=== PATIENT | male | born 1960 | race Native Hawaiian/Other Pacific Islander ===

== ENCOUNTER → 2016-03-04 | Outpatient (CLI) | payer BC ==
[2016-03-04 17:09] LABS: PROTHROMBIN TIME 26.3 SEC (11.4-15.4)
== END ==
LOC: OD 16:28
PROVIDERS: ATTEND Specialist
DX: I48.0 Paroxysmal atrial fibrillation (principal); Z79.01 Long term (current) use of anticoagulants
CPT/HCPCS: 36415; 85610

== ENCOUNTER → 2016-03-21 | Outpatient (CLI) | payer BC ==
[2016-03-21 17:17] LABS: PROTHROMBIN TIME 17.5 SEC (11.4-15.4)
== END ==
LOC: OD 15:31
PROVIDERS: ATTEND Urology
DX: E29.1 Testicular hypofunction (principal); N52.8 Other male erectile dysfunction; N52.9 Male erectile dysfunction, unspecified; I48.0 Paroxysmal atrial fibrillation; Z79.01 Long term (current) use of anticoagulants
CPT/HCPCS: 36415; 84403; 85610

== ENCOUNTER → 2016-03-28 | Outpatient (CLI) | payer BC ==
[2016-03-28 19:06] LABS: PROTHROMBIN TIME 39.9 SEC (11.4-15.4)
== END ==
LOC: OD 17:15
PROVIDERS: ATTEND Internal Medicine Cardiovascular Disease
DX: I48.0 Paroxysmal atrial fibrillation (principal); Z79.01 Long term (current) use of anticoagulants
CPT/HCPCS: 36415; 80162; 85610

== ENCOUNTER → 2016-04-15 | Outpatient (CLI) | payer BC ==
[2016-04-15 13:15] LABS: PROTHROMBIN TIME 28.3 SEC (11.4-15.4)
== END ==
LOC: OD 12:08
PROVIDERS: ATTEND Specialist
DX: I48.0 Paroxysmal atrial fibrillation (principal); Z79.01 Long term (current) use of anticoagulants
CPT/HCPCS: 36415; 85610

== ENCOUNTER 2016-05-10 14:05 | Emergency (ER) | payer BC ==
[2016-05-10] MEDS ORDERED: DIPH/PERTUSS(ACELL)/TETANUS VAC/PF 0.5 ML SYR (>=10YO) IM ONE (14:18)
--- NOTE | 2016-05-10 14:21 | ER Document Report ---
ED Medical Screen (RME) - General Stated Complaint: FINGER LACERATION Mode of Arrival: Ambulatory Information source: Patient Notes: pt presents to the ED with crush injury to right 5th finger. Pt is on coumadin. Nail intact. I have greeted and performed a rapid initial assessment of this patient. A comprehensive ED assessment and evaluation of the patient, analysis of test results and completion of the medical decision making process will be conducted by additional ED providers. TRAVEL OUTSIDE OF THE [place] IN LAST 30 DAYS: No - Related Data Allergies/Adverse Reactions: atorvastatin calcium [From Lipitor] Allergy (Verified 06/09/15 07:15) bupropion HCl [From Wellbutrin] Allergy (Verified 06/09/15 07:15) Past Medical History - Past Medical History Cardiac Medical History: Reports: Hx Atrial Fibrillation, Hx Hypercholesterolemia, Hx Hypertension Denies: Hx Coronary Artery Disease, Hx Heart Attack Pulmonary Medical History: Denies: Hx Asthma, Hx Bronchitis, Hx COPD, Hx Pneumonia Neurological Medical History: Denies: Hx Cerebrovascular Accident, Hx Seizures GI Medical History: Reports: Hx Gastroesophageal Reflux Disease Musculoskeltal Medical History: Denies Hx Arthritis Psychiatric Medical History: Denies: Hx Depression Past Surgical History: Reports: Hx Appendectomy, Hx Orthopedic Surgery - right elbow, WRIST, KNEE, SHOULDER. Denies: Hx Pacemaker - Immunizations Hx Diphtheria, Pertussis, Tetanus Vaccination: Yes Physical Exam - Vital signs Vitals: Temp Pulse Resp BP Pulse Ox 97.8 F 79 19 142/77 H 97 05/10/16 14:13 05/10/16 14:13 05/10/16 14:13 05/10/16 14:13 05/10/16 14:13 Course - Vital Signs Vital signs: Temp Pulse Resp BP Pulse Ox 97.8 F 79 19 142/77 H 97 05/10/16 14:13 05/10/16 14:13 05/10/16 14:13 05/10/16 14:13 05/10/16 14:13
[2016-05-10 15:29] LABS: PROTHROMBIN TIME 39.9 SEC (11.4-15.4)
--- NOTE | 2016-05-10 16:18 | ER Document Report ---
ED Hand/Wrist Injury - General Mode of Arrival: Ambulatory Information source: Patient TRAVEL OUTSIDE OF THE [place] IN LAST 30 DAYS: No - HPI Patient complains to provider of: Laceration to the right 5th digit Injury to: Ring finger Onset: Just prior to arrival Where: Outdoors Context: Other - see above - General Chief Complaint: Finger Injury Stated Complaint: FINGER LACERATION Notes: 55 year old male on Coumadin presents to the ED complaining of a laceration to the right 5th digit secondary to losing his balance, falling back, and having the 2'x6' he was carrying over his head fall onto his right 5th digit just prior to arrival. Patient states that skin from the tip of his 5th right digit was standing upright and it appears to have torn from under his nail bed. ( ROBERT KATZ) - Related Data Allergies/Adverse Reactions: atorvastatin calcium [From Lipitor] Allergy (Verified 05/10/16 14:21) bupropion HCl [From Wellbutrin] Allergy (Verified 05/10/16 14:21) Past Medical History - General Information source: Patient - Social History Smoking Status: Current Every Day Smoker Chew tobacco use (# tins/day): No Frequency of alcohol use: None Drug Abuse: None Family History: CVA, Hypertension Patient has suicidal ideation: No Patient has homicidal ideation: No - Past Medical History Cardiac Medical History: Reports: Hx Atrial Fibrillation, Hx Hypercholesterolemia, Hx Hypertension Renal/ Medical History: Denies: Hx Peritoneal Dialysis GI Medical History: Reports: Hx Gastroesophageal Reflux Disease Psychiatric Medical History: Denies: Hx Depression Past Surgical History: Reports: Hx Appendectomy, Hx Orthopedic Surgery - right elbow, WRIST, KNEE, SHOULDER - Immunizations Hx Diphtheria, Pertussis, Tetanus Vaccination: Yes Review of Systems - Review of Systems Constitutional: No symptoms reported EENT: No symptoms reported Cardiovascular: No symptoms reported Respiratory: No symptoms reported Gastrointestinal: No symptoms reported Genitourinary: No symptoms reported Male Genitourinary: No symptoms reported Musculoskeletal: No symptoms reported Skin: See HPI, Other - laceration to the right 5th digit Hematologic/Lymphatic: No symptoms reported Neurological/Psychological: No symptoms reported -: Yes All other systems reviewed and negative Physical Exam - General General appearance: Alert In distress: None - HEENT Head: Normocephalic, Atraumatic Eyes: Normal Extraocular movements intact: Yes Pupils: PERRL - Respiratory Respiratory status: No respiratory distress - Cardiovascular Rhythm: Regular - Abdominal Inspection: Normal - Back Back: Normal - Extremities General upper extremity: Normal ROM. No: Normal inspection - see hand exam below General lower extremity: Normal inspection, Normal ROM Hand: Other - 1 mm laceration to the radial aspect of the right 5th digit. 3 mm laceration to the ulnar aspect of the right 5th digit. Nail appears to be intact.. No: Normal - Neurological Neuro grossly intact: Yes - Psychological Associated symptoms: Normal affect, Normal mood - Skin Skin Temperature: Warm Skin Moisture: Dry Skin Color: Normal Skin irregularity: other - see extremity exam above - Vital signs Vitals: Temp Pulse Resp BP Pulse Ox 97.8 F 79 19 142/77 H 97 05/10/16 14:13 05/10/16 14:13 05/10/16 14:13 05/10/16 14:13 05/10/16 14:13 Course - Re-evaluation Re-evalutation: 05/10/16 17:40 The finger wound was cleaned and dressed using nonadherent dressing, then wrapped tightly with Koban. This seemed to control the bleeding completely. ( JOAQUIN PATEL) - Vital Signs Vital signs: Temp Pulse Resp BP Pulse Ox 97.8 F 79 19 142/77 H 97 05/10/16 14:13 05/10/16 14:13 05/10/16 14:13 05/10/16 14:13 05/10/16 14:13 - Laboratory Laboratory results interpreted by me: 05/10/16 15:02 PT 39.9 H Discharge - Discharge Clinical Impression: Excessive anticoagulation Crushing injury of finger of right hand Qualifiers: Encounter type: initial encounter Qualified Code(s): S67.21XA - Crushing injury of right hand, initial encounter Condition: Stable Disposition: HOME, SELF-CARE Additional Instructions: Take the medications as prescribed. Elevate your hand all the time. Leave the dressing intact until late Thursday, then remove the dressing and reapply a clean dressing. Omit your Coumadin dose for tonight and tomorrow night. Keep the finger dressing clean and dry. Follow-up with [facility] for surgery to evaluate the wound healing. RETURN TO THE EMERGENCY ROOM IF ANY NEW OR WORSENING SYMPTOMS. Prescriptions: Cephalexin Monohydrate [Keflex 500 mg Capsule] 500 mg PO QID #20 capsule Oxycodone HCl/Acetaminophen [Percocet 5-325 mg Tablet] 1 tab PO ASDIR PRN #15 tablet PRN Reason: Referrals: [facility] ([facility]) [Provider Group] Scribe Attestation: 05/10/16 17:46 I personally performed the services described in the documentation, reviewed and edited the documentation which was dictated to the scribe in my presence, and it accurately records my words and actions. (JOAQUIN PATEL) Scribe Documentation - Scribe Written by Jess:: Jess Deras, 05/10/2016 1636 acting as scribe for :: Jc
[2016-05-10] MEDS ORDERED: CEPHALEXIN 500 MG CAPSULE PO ONE (16:24)
[2016-05-10] MEDS ORDERED: HYDROCODONE/ACETAMINOPHEN 5-325 MG TABLET PO ONE (16:24)
[2016-05-10 17:56] VITALS: BP 149/89
== END 2016-05-10 17:55 | disposition home or self-care (01) ==
LOC: ER 14:05
DX: S67.21XA Crushing injury of right hand, initial encounter (principal); X58.XXXA Exposure to other specified factors, initial encounter; F17.200 Nicotine dependence, unspecified, uncomplicated; E78.00 Pure hypercholesterolemia, unspecified; I48.91 Unspecified atrial fibrillation; K21.9 Gastro-esophageal reflux disease without esophagitis; I10 Essential (primary) hypertension; Z79.02 Long term (current) use of antithrombotics/antiplatelets; Z23 Encounter for immunization
CPT/HCPCS: 36415; 85610; 90471; 90715; 99283

== ENCOUNTER → 2016-05-22 | Outpatient (CLI) | payer BC ==
[2016-05-22 09:58] LABS: PROTHROMBIN TIME 23.8 SEC (11.4-15.4)
== END ==
LOC: OD 09:13
PROVIDERS: ATTEND Specialist
DX: I48.0 Paroxysmal atrial fibrillation (principal); Z79.01 Long term (current) use of anticoagulants
CPT/HCPCS: 36415; 85610

== ENCOUNTER 2016-06-07 12:37 | Emergency (ER) | payer BC ==
[2016-06-07] MEDS ORDERED: LIDOCAINE 1% INJ-PF (10 MG/ML) 30 ML SDV INJ ONE (13:51)
--- NOTE | 2016-06-07 13:54 | ER Document Report ---
HPI - HPI Patient complains to provider of: cut left index finger Onset: This morning Quality of pain: Burning Pain Level: 2 Context: 55-year-old male stabbed his distal left index finger with a pocket knife when trying to punch a hole in his dog's collar this morning at [place]. He takes warfarin. His last INR was last thu, decreased to 7.5 alternating with 10mg daily (dr. callejas). tetanus current. He came into the ER because he couldn't get it to stop bleeding. Associated Symptoms: None Exacerbated by: Denies Relieved by: Denies Similar symptoms previously: Yes Recently seen / treated by doctor: Yes - last month - ROS ROS below otherwise negative: Yes Systems Reviewed and Negative: Yes All other systems reviewed and negative - DERM Skin Color: Normal Past Medical History - General Information source: Patient - Social History Smoking Status: Unknown if Ever Smoked Drug Abuse: None Lives with: Family Family History: CVA, Hypertension Patient has suicidal ideation: No Patient has homicidal ideation: No - Past Medical History Cardiac Medical History: Reports: Hx Atrial Fibrillation, Hx Hypercholesterolemia, Hx Hypertension Renal/ Medical History: Denies: Hx Peritoneal Dialysis GI Medical History: Reports: Hx Gastroesophageal Reflux Disease Musculoskeltal Medical History: Denies Hx Arthritis Past Surgical History: Reports: Hx Appendectomy, Hx Orthopedic Surgery - right elbow, WRIST, KNEE, SHOULDER - Immunizations Hx Diphtheria, Pertussis, Tetanus Vaccination: Yes Vertical Provider Document - CONSTITUTIONAL Agree With Documented VS: Yes Exam Limitations: No Limitations - INFECTION CONTROL TRAVEL OUTSIDE OF THE [place] IN LAST 30 DAYS: No - HEENT HEENT: Normocephalic - NECK Neck: Supple - RESPIRATORY O2 Sat by Pulse Oximetry: 98 - NEURO Level of Consciousness: Awake, Alert, Appropriate - DERM Integumentary: Warm, Dry, Laceration Course - Re-evaluation Re-evalutation: 06/07/16 15:[address] Callejas, he wants the patient to manage his Coumadin. Dr. Coffman wants him to skip his dose tonight then resume the alternating 7.5 and 10 mg starting tomorrow. - Vital Signs Vital signs: Temp Pulse Resp BP Pulse Ox 98.1 F 78 18 148/76 H 98 06/07/16 12:43 06/07/16 12:43 06/07/16 12:43 06/07/16 12:43 06/07/16 12:43 - Laboratory Result Diagrams: 06/07/16 14:35 Procedures - Laceration/Wound Repair Left Finger Time completed: 14:56 Wound length (cm): 1 - flap cut Wound's Depth, Shape: Flap Laceration pre-procedure: Sterile drapes applied, Other - surgiscrib Volume Anesthetic (mLs): 6 - digital block Wound explored: Clean Irrigated w/ Saline (mLs): 60 Wound Repaired With: Sutures Suture Size/Type: 4:0, Prolene Number of Sutures: 3 Layer Closure?: No Post-procedure NV exam normal: No - still had finger anesthetized Complications: No Notes: 06/07/16 15:18 tourniquet used to evaluate base of flap wound, only subq tissue, no bone exposed. FROM Discharge - Discharge Clinical Impression: finger cut repair, Elevated INR Condition: Good Disposition: HOME, SELF-CARE Additional Instructions: do not take your coumadin tonight restart your coumadin per dr. callejas orders, i spoke with him and he wants you to resume the every other day of 7.5 and 10mg keep the dressing in place for 2 days, soak off, then keep clean and dry return to er any concerns sutures out in 9 days recheck INR in 1 week Please complete the patient satisfaction survey if you get one, and return it.. If you do not receive a survey, then you can go to the [facility] website, [email or web address] and place your comments about your very good care. Thank you very much. It was a pleasure being your medical provider today. Forms: Follow-Up Laboratory Testing Referrals: ROGER COFFMAN MD [ACTIVE STAFF] - Follow up as needed
[2016-06-07 15:07] LABS: ABSOLUTE BASOPHILS # (AUTO) 0.1 10^3/uL (0.0-0.2); ABSOLUTE EOSINOPHILS # (AUTO) 0.2 10^3/uL (0.0-0.6); ABSOLUTE LYMPHOCYTES (AUTO) 2.5 10^3/uL (0.5-4.7); ABSOLUTE MONOCYTES (AUTO) 0.7 10^3/uL (0.1-1.4); ABSOLUTE NEUT (AUTO) 4.8 10^3/uL (1.7-8.2); BASOPHILS % (AUTO) 1.1 % (0-2); EOSINOPHILS % (AUTO) 2.1 % (0-6); HEMATOCRIT 41.2 % (37.9-51.0); HEMOGLOBIN 13.1 g/dL (13.5-17.0); HGB HCT DIFFERENCE -1.9; LYMPHOCYTES % (AUTO) 30.8 % (13-45); MEAN CORPUSCULAR HEMOGLOBIN 20.5 pg (27.0-33.4); MEAN CORPUSCULAR HGB CONC 31.9 g/dL (32.0-36.0); MONOCYTES % (AUTO) 8.1 % (3-13); RED BLOOD COUNT 6.43 10^6/uL (4.35-5.55); RED CELL DISTRIBUTION WIDTH 15.9 % (11.5-14.0); SEGMENTED NEUTROPHILS % (AUTO) 57.9 % (42-78); WHITE BLOOD COUNT 8.3 10^3/uL (4.0-10.5)
[2016-06-07 15:12] LABS: PROTHROMBIN TIME 38.6 SEC (11.4-15.4)
[2016-06-07 15:20] LABS: MEAN CORPUSCULAR VOLUME 64 fl (80-97)
[2016-06-07 15:23] LABS: ANISOCYTOSIS SLIGHT; HYPOCHROMASIA 1+; POIKILOCYTOSIS SLIGHT; POLYCHROMASIA SLIGHT; TARGET CELLS SLIGHT
[2016-06-07 16:21] VITALS: BP 130/77
== END 2016-06-07 16:05 | disposition home or self-care (01) ==
LOC: ER 12:37
PROC: 0HQGXZZ Repair Left Hand Skin, External Approach (ICD-10-PCS; principal; 2016-06-07)
DX: S61.211A Laceration without foreign body of left index finger without damage to nail, initial encounter (principal); Z79.01 Long term (current) use of anticoagulants; W26.0XXA Contact with knife, initial encounter
CPT/HCPCS: 36415; 85025; 85610; 99283

== ENCOUNTER → 2016-06-17 | Outpatient (CLI) | payer BC ==
[2016-06-17 13:20] LABS: PROTHROMBIN TIME 33.7 SEC (11.4-15.4)
== END ==
LOC: OD 11:30
PROVIDERS: ATTEND Specialist
DX: I48.0 Paroxysmal atrial fibrillation (principal); Z79.01 Long term (current) use of anticoagulants
CPT/HCPCS: 36415; 85610

== ENCOUNTER → 2016-08-16 | Outpatient (CLI) | payer BC | LOC: OD 08:06 | PROVIDERS: ATTEND Specialist | DX: I48.0 Paroxysmal atrial fibrillation (principal); Z79.01 Long term (current) use of anticoagulants | CPT/HCPCS: 36415; 85610 ==

== ENCOUNTER → 2016-08-18 | Outpatient (CLI) | payer BC | LOC: OD 08:01 | PROVIDERS: ATTEND Specialist | DX: I48.0 Paroxysmal atrial fibrillation (principal); Z79.01 Long term (current) use of anticoagulants | CPT/HCPCS: 36415; 85610 ==

== ENCOUNTER → 2016-08-30 | Outpatient (CLI) | payer BC ==
[2016-08-30 09:16] LABS: PROTHROMBIN TIME 40.4 SEC (11.4-15.4)
== END ==
LOC: OD 08:04
PROVIDERS: ATTEND Specialist
DX: I48.0 Paroxysmal atrial fibrillation (principal); Z79.01 Long term (current) use of anticoagulants
CPT/HCPCS: 36415; 85610

== ENCOUNTER → 2016-09-12 | Outpatient (CLI) | payer BC ==
[2016-09-12 12:07] LABS: PROTHROMBIN TIME 45.1 SEC (11.4-15.4)
== END ==
LOC: OD 11:27
PROVIDERS: ATTEND Specialist
DX: I48.0 Paroxysmal atrial fibrillation (principal); Z79.01 Long term (current) use of anticoagulants
CPT/HCPCS: 36415; 85610

== ENCOUNTER → 2016-10-21 | Outpatient (CLI) | payer BC ==
[2016-10-21 12:51] LABS: PROTHROMBIN TIME 23.5 SEC (11.4-15.4)
== END ==
LOC: OD 11:45
PROVIDERS: ATTEND Specialist
DX: I48.0 Paroxysmal atrial fibrillation (principal); Z79.01 Long term (current) use of anticoagulants
CPT/HCPCS: 36415; 85610

== ENCOUNTER 2017-01-10 05:29 | Emergency (ER) | payer BC ==
--- NOTE | 2017-01-10 06:00 | RADIOLOGY REPORT (SQ) ---
EXAM DESCRIPTION: CT HEAD WITHOUT COMPLETED DATE/TIME: 01/10/2017 5:41 am REASON FOR STUDY: stroke alert COMPARISON: 09/13/2015. MRI, 06/30/2016. TECHNIQUE: Axial images acquired through the brain without intravenous contrast. Images reviewed wi th bone, brain and subdural windows. Images stored on PACS. All CT scanners at this facility use dose modulation, iterative reconstruction, and/or weight based d osing when appropriate to reduce radiation dose to as low as reasonably achievable (ALARA). [facility]: Dose Right [facility]: CareDose [facility]: Dose Right [facility]: Teradose 4D [facility]: Smart [employer] RADIATION DOSE: Up-to-date CT equipment and radiation dose reduction techniques were employed. CTDIv ol: 64.6 mGy. DLP: 1034 mGy-cm. mGy. LIMITATIONS: None. FINDINGS: VENTRICLES: Normal size and contour. CEREBRUM: No masses. No hemorrhage. No midline shift. No evidence for acute infarction. Mild white matter microangiopathy. Moderate encephalomalacia of the right occipital lobe consistent with a chr onic right posterior cerebral artery territory infarct. CEREBELLUM: No masses. No hemorrhage. No alteration of density. No evidence for acute infarction. EXTRAAXIAL SPACES: No fluid collections. No masses. ORBITS AND GLOBE: No intra- or extraconal masses. Normal contour of globe without masses. CALVARIUM: No fracture. PARANASAL SINUSES: No fluid or mucosal thickening. SOFT TISSUES: No mass or hematoma. OTHER: No other significant finding. IMPRESSION: No acute findings. Chronic right POPCORN ATTENDANT infarct. EVIDENCE OF ACUTE STROKE: NO. This report was called to Dr. Elizabeth Arellano At05:50 on 01/10/2017. COMMENT: Quality ID # [id number]: Final reports with documentation of one or more dose reduction techniques (e.g., Automated exposure control, adjustment of the mA and/or kV according to patient size, use of iterative reconstruction technique) TECHNICAL DOCUMENTATION: JOB ID: [id number]- All Rights Reserved
[2017-01-10 06:05] LABS: ABSOLUTE EOSINOPHILS # (AUTO) 0.2 10^3/uL (0.0-0.6); ABSOLUTE MONOCYTES (AUTO) 0.6 10^3/uL (0.1-1.4); ABSOLUTE NEUT (AUTO) 5.2 10^3/uL (1.7-8.2); BASOPHILS % (AUTO) 0.3 % (0-2); EOSINOPHILS % (AUTO) 2.4 % (0-6); HEMATOCRIT 40.8 % (37.9-51.0); HEMOGLOBIN 12.9 g/dL (13.5-17.0); HGB HCT DIFFERENCE -2.1; LYMPHOCYTES % (AUTO) 25.3 % (13-45); MEAN CORPUSCULAR HEMOGLOBIN 20.6 pg (27.0-33.4); MEAN CORPUSCULAR HGB CONC 31.7 g/dL (32.0-36.0); MEAN CORPUSCULAR VOLUME 65 fl (80-97); MONOCYTES % (AUTO) 7.9 % (3-13); RED BLOOD COUNT 6.28 10^6/uL (4.35-5.55); RED CELL DISTRIBUTION WIDTH 15.3 % (11.5-14.0); SEGMENTED NEUTROPHILS % (AUTO) 64.1 % (42-78); WHITE BLOOD COUNT 8.1 10^3/uL (4.0-10.5)
--- NOTE | 2017-01-10 06:05 | RADIOLOGY REPORT (SQ) ---
EXAM DESCRIPTION: CHEST SINGLE VIEW COMPLETED DATE/TIME: 01/10/2017 5:54 am REASON FOR STUDY: stroke alert COMPARISON: 07/01/2015, 06/09/2015. EXAM PARAMETERS: NUMBER OF VIEWS: One view. TECHNIQUE: Single frontal radiographic view of the chest acquired. RADIATION DOSE: NA LIMITATIONS: None. FINDINGS: LUNGS AND PLEURA: No opacities, masses or pneumothorax. No pleural effusion. Prominent in terstitium. Stable. MEDIASTINUM AND HILAR STRUCTURES: No masses. Contour normal. HEART AND VASCULAR STRUCTURES: Prominent cardiac silhouette. Stable. BONES: No acute findings. HARDWARE: None in the chest. OTHER: No other significant finding. IMPRESSION: No acute cardiopulmonary findings. TECHNICAL DOCUMENTATION: JOB ID: [id number] [employer]- All Rights Reserved
[2017-01-10 06:06] LABS: PROTHROMBIN TIME 13.4 SEC (11.4-15.4)
[2017-01-10 06:07] LABS: PARTIAL THROMBOPLASTIN TIME 31.1 SEC (23.5-35.8)
[2017-01-10 06:20] LABS: ALANINE AMINOTRANSFERASE 33 U/L (21-72); ALKALINE PHOSPHATASE 87 U/L (38-126); ANION GAP 13 (5-19); ASPARTATE AMINO TRANSFERASE 17 U/L (17-59); BILIRUBIN,DIRECT 0.3 mg/dL (0.0-0.4); BILIRUBIN,TOTAL 0.4 mg/dL (0.2-1.3); BLOOD UREA NITROGEN 16 mg/dL (7-20); CALCIUM 8.8 mg/dL (8.4-10.2); CARBON DIOXIDE 24 mmol/L (22-30); CHLORIDE 107 mmol/L (98-107); CREATINE KINASE 172 U/L (55-170); CREATININE RESULT 0.88 mg/dL (0.52-1.25); GLUCOSE 143 mg/dL (75-110); POTASSIUM 3.8 mmol/L (3.6-5.0); SODIUM 143.7 mmol/L (137-145); TOTAL PROTEIN 6.6 g/dL (6.3-8.2)
[2017-01-10] MEDS ORDERED: PROCHLORPERAZINE EDISYLATE INJ 10 MG/2 ML VIAL IV ONE (06:27)
[2017-01-10] MEDS ORDERED: NORMAL SALINE 1000 ML 1,000 ML IV ONE (06:27)
[2017-01-10] MEDS ORDERED: DIPHENHYDRAMINE HCL 50 MG/ML VIAL IV ONE (06:27)
[2017-01-10 06:32] LABS: ADD ON TESTING BLD IN LAB ACKNOWLEDGE; TROPONIN I < 0.012 ng/mL
--- NOTE | 2017-01-10 06:34 | ER Document Report ---
ED Neuro Symptoms/Deficit <JORGEJOAQUIN - Last Filed: 01/10/17 07:38> - General Mode of Arrival: Ambulatory Information source: Patient TRAVEL OUTSIDE OF THE [place].S. IN LAST 30 DAYS: No <TELMA OSBORN - Last Filed: 01/10/17 09:08> - General Chief Complaint: General Weakness Stated Complaint: POSSIBLE STROKE Time Seen by Provider: 01/10/17 06:13 Notes: Patient is a 56 year old male that presents to the emergency department today with complaints of feeling "weak as water" at 0430 this morning when waking up to use the restroom. Patient complains of generalized weakness, no focal neurological deficits. Patient states he was unable to get out of bed due to weakness. Patient refocused and was able to use the restroom without difficulty a few minutes later. Patient also complains of a posterior headache which he has had for x4 days. Patient is on Coumadin secondary to atrial fibrillation but has been taken off of this since December secondary to a colonoscopy on the 05 of December. Patient's colonoscopy was done by Dr. Manuel [facility]. Family states he is supposed to be off of his Coumadin for a total of two weeks. Patient had multiple polyps removed, some were clipped. (TELMA OSBORN) - Related Data Allergies/Adverse Reactions: atorvastatin calcium [From Lipitor] Allergy (Verified 06/07/16 12:45) bupropion HCl [From Wellbutrin] Allergy (Verified 06/07/16 12:45) Past Medical History - General Information source: Patient - Social History Smoking Status: Current Every Day Smoker Cigarette use (# per day): Yes Chew tobacco use (# tins/day): No Frequency of alcohol use: None Drug Abuse: None Lives with: Family Family History: CVA, Hypertension Patient has suicidal ideation: No Patient has homicidal ideation: No - Past Medical History Cardiac Medical History: Reports: Hx Atrial Fibrillation, Hx Hypercholesterolemia, Hx Hypertension Neurological Medical History: Reports: 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 GI Medical History: Reports: Hx Gastroesophageal Reflux Disease Past Surgical History: Reports: Hx Appendectomy, Hx Orthopedic Surgery - right elbow, WRIST, KNEE, SHOULDER - Immunizations Hx Diphtheria, Pertussis, Tetanus Vaccination: Yes <TELMA OSBORN - Last Filed: 01/10/17 09:08> Review of Systems - Review of Systems Constitutional: See HPI, Weakness - generalized EENT: See HPI, Other - vision changes Cardiovascular: No symptoms reported Respiratory: No symptoms reported Gastrointestinal: No symptoms reported Genitourinary: No symptoms reported Male Genitourinary: No symptoms reported Musculoskeletal: No symptoms reported Skin: No symptoms reported Hematologic/Lymphatic: No symptoms reported Neurological/Psychological: See HPI, Headaches -: Yes All other systems reviewed and negative <TELMA OSBORN - Last Filed: 01/10/17 09:08> Physical Exam <JOAQUIN PATEL - Last Filed: 01/10/17 07:38> <TELMA OSBORN - Last Filed: 01/10/17 09:08> - Vital signs Vitals: Pulse Ox 97 01/10/17 04:24 - Notes Notes: Physical Exam: General: Alert, appears well. HEENT: Normocephalic. Atraumatic. PERRL. Extraocular movements intact. Oropharynx clear. No carotid bruits. Neck: Supple. Posterior cervical and occipital muscles are exquisitely tender with palpation. Respiratory: No respiratory distress. Clear and equal breath sounds bilaterally. Cardiovascular: Regular rate and rhythm. Abdominal: Normal Inspection. Non-tender. No distension. Normal Bowel Sounds. Back: Non-tender. No deformity or step off. Extremities: Moves all four extremities. Upper extremities: Normal inspection. Normal ROM. Lower extremities: Normal inspection. No edema. Normal ROM. Neurological: Cranial Nerves II-XII intact bilaterally. No focal neurological deficits. Normal cognition. AAOx4. Normal speech. Psychological: Normal affect. Normal Mood. Skin: Warm. Dry. Normal color. (TELMA OSBORN) Course - Laboratory Result Diagrams: 01/10/17 05:45 01/10/17 05:45 - EKG Interpretation by Or EKG shows normal: Sinus rhythm, [place], Intervals, QRS Complexes, ST-T Waves Rate: Normal - 60 Rhythm: NSR <JOAQUIN PATEL - Last Filed: 01/10/17 07:38> - Laboratory Result Diagrams: 01/10/17 05:45 01/10/17 05:45 <TELMA OSBORN - Last Filed: 01/10/17 09:08> - Re-evaluation Re-evalutation: 01/10/17 07:34 The patient was awakened from a deep snoring sleep. He feels much better at this time. Review of his past history with spouse shows that he was only in atrial fibrillation one time on the last day of a 30 day event monitor about a year ago. It is unclear just how critical the need for Coumadin actually is. Given that these symptoms are most likely migraine headache related and were bilateral, the need to anticoagulate is probably not urgent at this time. The spouse will contact his scientist today to ask for further guidance. ( JOAQUIN PATEL) - Vital Signs Vital signs: Temp Pulse Resp BP Pulse Ox 98.8 F 73 16 149/98 H 98 01/10/17 07:42 01/10/17 05:35 01/10/17 07:42 01/10/17 07:42 01/10/17 07:42 - Laboratory Laboratory results interpreted by me: 01/10/17 01/10/17 05:45 05:45 RBC 6.28 H Hgb 12.9 L MCV 65 L MCH 20.6 L MCHC 31.7 L RDW 15.3 H Glucose 143 H Creatine Kinase 172 H Discharge <JOAQUIN PATEL - Last Filed: 01/10/17 07:38> <TELMA OSBORN - Last Filed: 01/10/17 09:08> - Discharge Clinical Impression: Muscle tension headache, Generalized muscle weakness Migraine headache Qualifiers: Migraine type: unspecified Status migrainosus presence: without status migrainosus Intractability: not intractable Qualified Code(s): G43.909 - Migraine, unspecified, not intractable, without status migrainosus Condition: Stable Disposition: HOME, SELF-CARE Additional Instructions: Your symptoms today were probably due to a combination of migraine and muscle tension headache. The bilateral weakness does not suggest a transient ischemic attack or stroke. Follow-up with your scientist to discuss when to start back on your Coumadin. Follow-up with your primary care provider if your headache continues to be a problem. RETURN TO THE EMERGENCY ROOM IF ANY NEW OR WORSENING SYMPTOMS. Referrals: SYDNEY RING MD [Primary Care Provider] - Follow up as needed Scribe Attestation: 01/10/17 07:37 I personally performed the services described in the documentation, reviewed and edited the documentation which was dictated to the scribe in my presence, and it accurately records my words and actions. (JOAQUIN PATEL) Scribe Documentation - Scribe Written by Scribe:: Jess Isbell, 01/10/2017 0634 acting as scribe for :: Jorge <TELMA OSBORN - Last Filed: 01/10/17 09:08>
[2017-01-10 06:47] LABS: DIGOXIN 1.02 ng/mL (0.8-2.0)
[2017-01-10 07:49] VITALS: BP 149/98
--- NOTE | 2017-01-10 08:45 | EKG REPORT ---
SEVERITY:- NORMAL ECG - SINUS RHYTHM : Confirmed by: Lazaro Del Rio MD 10-Jan-2017 08:44:46
== END 2017-01-10 07:49 | disposition home or self-care (01) ==
LOC: ER 05:29
DX: R53.1 Weakness (principal); G43.909 Migraine, unspecified, not intractable, without status migrainosus; G44.209 Tension-type headache, unspecified, not intractable; H53.9 Unspecified visual disturbance; I48.91 Unspecified atrial fibrillation; I10 Essential (primary) hypertension; F17.210 Nicotine dependence, cigarettes, uncomplicated; Z98.890 Other specified postprocedural states; Z88.8 Allergy status to other drugs, medicaments and biological substances; Z86.73 Personal history of transient ischemic attack (TIA), and cerebral infarction without residual deficits; Z82.3 Family history of stroke
CPT/HCPCS: 93005; 99285; 96361; 96374; 96375; 36415; 82553; 82550; 80162; 85025; 85610; 85730; 80053; 84484; 71010; 70450; 93010; J1200; J0780; J7030

== ENCOUNTER 2017-01-10 20:02 | Inpatient (IN) | payer BC ==
--- NOTE | 2017-01-10 20:46 | RADIOLOGY REPORT (SQ) ---
EXAM DESCRIPTION: CT HEAD WITHOUT COMPLETED DATE/TIME: 01/10/2017 8:28 pm REASON FOR STUDY: stroke protocol COMPARISON: None. TECHNIQUE: Axial images acquired through the brain without intravenous contrast. Images reviewed wi th bone, brain and subdural windows. Images stored on PACS. All CT scanners at this facility use dose modulation, iterative reconstruction, and/or weight based d osing when appropriate to reduce radiation dose to as low as reasonably achievable (ALARA). [facility]: Dose Right [facility]: CareDose [facility]: Dose Right [facility]: Teradose 4D [facility]: Smart [employer] RADIATION DOSE: mGy. LIMITATIONS: None. FINDINGS: VENTRICLES: Normal size and contour. CEREBRUM: No masses. No hemorrhage. No midline shift. Increased conspicuity of a right occipital lo be focus of geographic decreased attenuation suggesting acute on chronic ischemic injury. Background of chronic microvascular ischemic change. CEREBELLUM: No masses. No hemorrhage. No alteration of density. No evidence for acute infarction. EXTRAAXIAL SPACES: No fluid collections. No masses. ORBITS AND GLOBE: No intra- or extraconal masses. Normal contour of globe without masses. CALVARIUM: No fracture. PARANASAL SINUSES: No fluid or mucosal thickening. SOFT TISSUES: No mass or hematoma. OTHER: No other significant finding. IMPRESSION: Increased conspicuity of right occipital lobe geographic hypoattenuation suggesting acut e on chronic ischemic injury. No evidence of hemorrhagic conversion. EVIDENCE OF ACUTE STROKE: Yes subacute right MEDICAL DEVICE. COMMENT: Pertinent positive or negative findings of the imaging study reported as a CRITICAL EXAM severo SWAIN DO at20:39 on 01/10/2017. Category of Critical Exam: Stroke code Quality ID # [id number]: Final reports with documentation of one or more dose reduction techniques (e.g., Au tomated exposure control, adjustment of the mA and/or kV according to patient size, use of iterative reconstruction technique) TECHNICAL DOCUMENTATION: JOB ID: [id number] [employer]- All Rights Reserved
--- NOTE | 2017-01-10 20:53 | RADIOLOGY REPORT (SQ) ---
EXAM DESCRIPTION: CHEST SINGLE VIEW COMPLETED DATE/TIME: 01/10/2017 8:35 pm REASON FOR STUDY: stroke protocol COMPARISON: 01/10/2017 EXAM PARAMETERS: NUMBER OF VIEWS: One view. TECHNIQUE: Single frontal radiographic view of the chest acquired. RADIATION DOSE: NA LIMITATIONS: None. FINDINGS: LUNGS AND PLEURA: No opacities, masses or pneumothorax. No pleural effusion. MEDIASTINUM AND HILAR STRUCTURES: No masses. Contour normal. HEART AND VASCULAR STRUCTURES: Mild cardiomegaly, stable. Normal vasculature. BONES: No acute findings. HARDWARE: None in the chest. OTHER: No other significant finding. IMPRESSION: NO ACUTE RADIOGRAPHIC FINDING IN THE CHEST. TECHNICAL DOCUMENTATION: JOB ID: [id number] [employer]- All Rights Reserved
[2017-01-10 21:02] LABS: PARTIAL THROMBOPLASTIN TIME 30.5 SEC (23.5-35.8)
[2017-01-10 21:11] LABS: PROTHROMBIN TIME 14.3 SEC (11.4-15.4)
[2017-01-10 21:13] LABS: ABSOLUTE BASOPHILS # (AUTO) 0.1 10^3/uL (0.0-0.2); ABSOLUTE EOSINOPHILS # (AUTO) 0.2 10^3/uL (0.0-0.6); ABSOLUTE LYMPHOCYTES (AUTO) 2.4 10^3/uL (0.5-4.7); ABSOLUTE MONOCYTES (AUTO) 0.7 10^3/uL (0.1-1.4); ABSOLUTE NEUT (AUTO) 5.7 10^3/uL (1.7-8.2); BASOPHILS % (AUTO) 0.6 % (0-2); EOSINOPHILS % (AUTO) 1.9 % (0-6); HEMOGLOBIN 11.8 g/dL (13.5-17.0); HGB HCT DIFFERENCE -1.6; LYMPHOCYTES % (AUTO) 26.8 % (13-45); MEAN CORPUSCULAR HEMOGLOBIN 20.7 pg (27.0-33.4); MEAN CORPUSCULAR HGB CONC 31.8 g/dL (32.0-36.0); MEAN CORPUSCULAR VOLUME 65 fl (80-97); MONOCYTES % (AUTO) 7.6 % (3-13); RED BLOOD COUNT 5.68 10^6/uL (4.35-5.55); RED CELL DISTRIBUTION WIDTH 15.3 % (11.5-14.0); SEGMENTED NEUTROPHILS % (AUTO) 63.1 % (42-78)
--- NOTE | 2017-01-10 21:16 | EKG REPORT ---
SEVERITY:- NORMAL ECG - SINUS RHYTHM : Confirmed by: Lazaro Del Rio MD 10-Jan-2017 21:16:12
[2017-01-10 21:17] LABS: ALANINE AMINOTRANSFERASE 35 U/L (21-72); ALBUMIN 3.5 g/dL (3.5-5.0); ALKALINE PHOSPHATASE 62 U/L (38-126); ANION GAP 11 (5-19); ASPARTATE AMINO TRANSFERASE 17 U/L (17-59); BILIRUBIN,DIRECT 0.4 mg/dL (0.0-0.4); BILIRUBIN,TOTAL 0.5 mg/dL (0.2-1.3); BLOOD UREA NITROGEN 11 mg/dL (7-20); CALCIUM 8.7 mg/dL (8.4-10.2); CARBON DIOXIDE 24 mmol/L (22-30); CHLORIDE 110 mmol/L (98-107); CREATINE KINASE 110 U/L (55-170); CREATININE RESULT 0.86 mg/dL (0.52-1.25); GLUCOSE 105 mg/dL (75-110); POTASSIUM 3.9 mmol/L (3.6-5.0); SODIUM 145.3 mmol/L (137-145); TOTAL PROTEIN 5.9 g/dL (6.3-8.2)
--- NOTE | 2017-01-10 21:18 | ER Document Report ---
ED Neuro Symptoms/Deficit - General Mode of Arrival: Ambulatory Information source: Patient Notes: Patient is a 56 year old male with a history of Afib, presents to the emergency department complaining of intermittent weakness of the left arm and headaches. Patient was seen in the emergency department earlier today with complaints of feeling weak and bilateral numbness. Patient states that the symptoms he had this morning has increasingly gotten worse at 16:30 and 17:00 of his left arm and left leg. At bedside, the patient states he does not feel weak, although he still has a severe headache. Patient is on Coumadin secondary to atrial fibrillation, but was recently taken off of Coumadin since December 30 due to a colonoscopy. TRAVEL OUTSIDE OF THE [place] IN LAST 30 DAYS: No - HPI Patient complains to provider of: Speech Impairment - slurred speech without hindering comprehension. No: Facial Droop Onset: This morning Associated symptoms: Headache <JENNY HUTSON - Last Filed: 01/10/17 23:42> <YANE SHELLEY - Last Filed: 01/11/17 00:10> - General Chief Complaint: S/S of Possible Stroke Stated Complaint: LEFT SIDE WEAKNESS Time Seen by Provider: 01/10/17 20:42 - Related Data Allergies/Adverse Reactions: atorvastatin calcium [From Lipitor] Allergy (Verified 01/10/17 22:25) bupropion HCl [From Wellbutrin] Allergy (Verified 01/10/17 22:25) Past Medical History - General Information source: Patient - Social History Smoking Status: Smoker,Current Status Unk Family History: CVA, Hypertension Patient has suicidal ideation: No Patient has homicidal ideation: No - Past Medical History Cardiac Medical History: Reports: Hx Atrial Fibrillation, Hx Hypercholesterolemia, Hx Hypertension Neurological Medical History: Reports: 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 GI Medical History: Reports: Hx Gastroesophageal Reflux Disease Past Surgical History: Reports: Hx Appendectomy, Hx Orthopedic Surgery - right elbow, WRIST, KNEE, SHOULDER - Immunizations Hx Diphtheria, Pertussis, Tetanus Vaccination: Yes <JENNY HUTSON - Last Filed: 01/10/17 23:42> Review of Systems - Review of Systems Constitutional: No symptoms reported EENT: No symptoms reported Cardiovascular: No symptoms reported Respiratory: No symptoms reported Gastrointestinal: No symptoms reported Genitourinary: No symptoms reported Male Genitourinary: No symptoms reported Musculoskeletal: No symptoms reported Skin: No symptoms reported Hematologic/Lymphatic: No symptoms reported Neurological/Psychological: See HPI, Weakness, Headaches, Numbness -: Yes All other systems reviewed and negative <JENNY HUTSON - Last Filed: 01/10/17 23:42> Physical Exam - Vital signs Vitals: Temp Pulse Resp BP Pulse Ox 97.5 F 67 20 150/82 H 97 01/10/17 20:06 01/10/17 20:06 01/10/17 20:06 01/10/17 20:06 01/10/17 20:06 - Notes Notes: GENERAL: Alert, interacts well. No acute distress. HEAD: Normocephalic, atraumatic. EYES: Pupils equal, round, and reactive to light. Extraocular movements intact. ENT: Oral mucosa moist, tongue midline. NECK: Full range of motion. Supple. Trachea midline. LUNGS: Clear to auscultation bilaterally, no wheezes, rales, or rhonchi. No respiratory distress. HEART: Regular rate and rhythm. No murmurs, gallops, or rubs. ABDOMEN: Soft, non-tender. Non-distended. Bowel sounds present in all 4 quadrants. EXTREMITIES: Moves all 4 extremities spontaneously. No edema, radial and dorsalis pedis pulses 2/4 bilaterally. No cyanosis. NEUROLOGICAL: Alert and oriented x3. Mildly slurred speech. Patients family confirmed that this is not due to accent. Decreased sharp/differentiation on ulnar aspect of left forearm. Cranial nerves II through XII grossly intact. Biceps and patellar DTRs 2+ bilaterally. See NIH scale. PSYCH: Normal affect, normal mood. SKIN: Warm, dry, normal turgor. No rashes or lesions noted. <JENNY HUTSON - Last Filed: 01/10/17 23:42> - Vital signs Vitals: Temp Pulse Resp BP Pulse Ox 97.5 F 67 20 150/82 H 97 01/10/17 20:06 01/10/17 20:06 01/10/17 20:06 01/10/17 20:06 01/10/17 20:06 <YANE SHELLEY - Last Filed: 01/11/17 00:10> Course - Re-evaluation Re-evalutation: Dr. Bowens, a neurologist at [facility] stated that he would not do a clot retrieval on patient. (Consulted at 21:22) Dr. Martinez is consulted about patient. Dr. Martinez stated to consult Dr. Boo about a possible HERBIE for atrial clot. Dr. Boo consulted and stated to order a trans thoracic echo. If atrial clot is large enough for intervention, it would be apparent on trans thoracic echo. (Consulted at 21:54) 01/10/2017 01/10/17 23:30 - Vital Signs Vital signs: Temp Pulse Resp BP Pulse Ox 97.5 F 71 20 150/82 H 97 01/10/17 20:09 01/10/17 20:09 01/10/17 20:09 01/10/17 20:09 01/10/17 20:09 - Laboratory Result Diagrams: 01/10/17 20:43 01/10/17 20:43 <JENNY HUTSON - Last Filed: 01/10/17 23:42> - Re-evaluation Re-evalutation: 01/10/17 23:38 Patient's history concerning for stroke, initially patient stated that his symptoms were exactly the same as when he was discharged earlier today however on further questioning patient admits that all symptoms except for the headache completely resolved but then returned around 1630 and then got better and then returned again around 1700. Admits that earlier he been complaining of bilateral numbness and currently he is complaining of left-sided weakness. CBC shows mild anemia with a hemoglobin 11.8, platelets normal, no leukocytosis , coags show slightly prolonged INR, sodium mildly elevated 145.3 this is not significant, cardiac enzymes negative, chemistries otherwise unremarkable, chest x-ray shows no acute process, CT scan of the head now shows increased conspicuity of right occipital lobe geographic hypoattenuation suggesting acute on chronic ischemic injury no evidence of hemorrhagic conversion, consistent with subacute right SUPPORT ASSISTANT stroke. Patient is difficult to track for exact timeframe for TPA, depending on when you start tracking the patient's symptoms he could have either been last known normal when he went to sleep last night or last known normal just before 5:00 this evening when the symptoms return for the final time. Given the stuttering symptoms and the evidence of a right SUPPORT ASSISTANT occlusion I did call [facility] and speak with their neurologist front maker Dr. Bowens who stated he would not do a clot retrieval on this patient due to the location of the infarct and his very low NIH stroke scale, I did discuss the possibility of TPA with the patient and his spouse and daughter, they all agree that he is very high risk given the uncertain timeframe and that the risks outweigh the benefits given his low NIH stroke scale. Currently there is absolutely no reproducible weakness. TTE has been ordered based off of discussion with Dr. Martinez and Dr. Boo. Lovenox has been ordered. 01/11/17 00:09 Atrial clot at this time. Dr. Martinez agrees to admit this patient to the [facility]. - Vital Signs Vital signs: Temp Pulse Resp BP Pulse Ox 97.5 F 60 22 H 145/79 H 99 01/10/17 20:09 01/10/17 20:50 01/10/17 22:01 01/10/17 22:01 01/10/17 22:01 - Laboratory Result Diagrams: 01/10/17 20:43 01/10/17 20:43 Laboratory results interpreted by me: 01/10/17 01/10/17 20:43 20:43 RBC 5.68 H Hgb 11.8 L Hct 37.0 L MCV 65 L MCH 20.7 L MCHC 31.8 L RDW 15.3 H Sodium 145.3 H Chloride 110 H Total Protein 5.9 L - EKG Interpretation by Me Additional EKG results interpreted by me: 01/10/17 23:41 EKG continues to show sinus rhythm at a rate of 66, normal axis, normal intervals, rapid R-wave progression, no ST segment elevations or depressions, T- wave inversions noted in lead III which are nonspecific per my interpretation. <YANE SHELLEY - Last Filed: 01/11/17 00:10> ED Alteplase Inc/Exc Criteria - Date/Time patient last known well: Date/Time: 01/10/17 17:00 - Date/Time patient arrived in ED: _: 01/10/17 20:06 - Inclusion Criteria: 1: Patient presented to ED within 3 hours of acute ischemic stroke symptom onset ? -: No 2: Did baseline CT exclude intracranial hemorrhage and/or other risk factors? -: Yes 3: Is the age of the patient 18 years of age or greater? -: Yes : If any of the above questions are answered "NO" then stop, patient is not a candidate for Alteplase, : If all of the above questions are answered "YES" then continue with Exclusion Criteria. - Exclusion Criteria: 1: Is there evidence of intracranial hemorrhage on baseline CT? -: No 2: Is there suspicion of subarachnoid hemorrhage (even if CT negative)? -: No 3: Is there a history of serious head trauma, recent previous stroke or [place] within 3 months? -: No 4: Does the patient have a clinical presentation consistent with [place] or post-[place] pericarditis? -: No 5: Is there history of intracranial hemorrhage? -: No 6: On repeated measurement is Systolic BP greater than 185mmHg or Diastolic BP greater that 110 mmHg and is aggressive treatment needed to reduce blood pressure to these limits (e.g. constant infusion of an anti-hypertensive)? -: No 7: Did the patient awake with stroke symptoms? -: No 8: Has the patient had a lumbar puncture or an arterial puncture at a non- compressile site within 7 days? -: No 9: With in the last 14 days did the patient have surgery or major trauma? -: No 10: Is the patient or less than 2 weeks? -: No 11: Was there any active bleeding or acute trauma? -: No 12: Does the patient have intracranial neoplasm, arteriovenous malformation or aneurysm? -: No 13: Does the patient have abnormal glucose (less than 50 or greater than 400mg/ dl)? Record glucose in Comment. -: No 14: Patient has rapidly improving symptoms at the time Alteplase is to be Administered. -: Yes 15: Does the patient have any risks for bleeding, including but not limited to: a.: Current use of Coumadin with PT greater than 15 seconds or INR greater than 1.7. b.: Current use of Pradaxa (Dabigatran). c.: Heparin administereed within the past 48 hours and PTT elevated. d.: Platelet count less than 100,000/mm. e.: Major surgery or serious trauma within 14 days. f.: Gastrointestinal or gynecological urinary bleeding within 14 days. g.: Myocardial Infarction ([place]) within 3 months. -: No : If the answer to any of the above questions is "YES" then stop, the patient is not a candidate for Alteplase. : If the answer to all of the above questions is "NO" then the patient may be eligible for the Administration of Alteplase. : If the patient is noted to have seizure activity at onset of Stroke symptoms; Consult Neurologist for further evaluation. - The patient is: -: Included and is eligible to receive Alteplase. *Initiate bed placement at higher level of care* --: No Reviewd risks & benefits of thrombolytic therapy: I have reviewed the risks and benefits of thrombolytic therapy with the patient and/or his/her family. Yes -: Excluded and not eligible to receive Alteplase for the above exclusions. --: Yes -: Excluded and not eligible to receive Alteplase for other reasons (specify in comments): - Diagnosis of TIA: -: Patient presented with transient symptoms that are now resolved and no other neurologic findings are currently present. List symptoms in comments. -: No -: Patient is NOT a candidate for tPA. -: Yes -: ____(put name in comment) has been consulted for admission and continued evaluation of risk factor assessment. Comment: Dr. Martinez <YANE SHELLEY - Last Filed: 01/11/17 00:10> ED NIH Stroke Scale - NIH Stroke Scale *: 1. NIH scale should be completed with appropriate accompanying assessment tools. *: 2. The NIH should reflect what the patient is capable of doing and should not be coached by the clinician. 1a. Level of Consciousness: 0=Alert;keenly responsive -: 1=Drowsy -: 2=Obtunded -: 3=Coma/unresponsive or reflex to noxious stimuli. 1a. Responses: 0 1b. Orientation Questions: a. What month is it? -: b. How old are you? -: 0=Answers both questions correctly. -: 1=Answers one question correctly or patient is intubated or has orotracheal trauma. -: 2=Answers neither question correctly. 1b. Responses: 0 1c. Response to commands: a. Open and close eyes? -: b. Polisher Apprentice and release hand? -: Credit is given despite weakness. Demonstration of task is permitted. Substitute command if hands cannot be used. -: 0=Performs both tasks correctly -: 1=Performs one task correctly -: 2=Performs neither task correctly 1c. Responses: 0 2. Gaze: Establish eye contact and instruct patient to "Follow my finger" -: 0=Normal -: 1=Partial gaze palsy. Gaze is abnormal in one or both eyes, but where forced deviation or total gaze paresis is not present. -: 2=Forced deviation or total gaze paresis. 2. Responses: 0 3. Visual Britt: Sees fingers in all four quadrants. -: 0=No visual loss. -: 1=Partial hemianopsia. -: 2=Complete hemianopsia. -: 3=Bilateral hemianopsia (including Cortical blindness) 3. Responses: 0 4. Facial Movement: Instruct patient to: -: a. Show me your teeth -: b. Raise your eyebrows -: c. Close your eyes -: d. Smile -: 0=Normal symmetrical movement -: 1=Minor paralysis (flattened nasolabial fold, asymmetry on smiling). -: 2=Partial paralysis (total or near total paralysis of lower face). -: 3=Complete paralysis of upper and lower face 4. Responses: 0 5. Motor functions (left arm): Alternate sides and extend each arm with palms down (90 degrees if sitting or 45 degrees for supine). -: 0=No drift;limb holds for full 10 seconds. -: 1=Drift; limb holds but drifts down before full 10 seconds, but does not hit bed. -: 2=Some effort against gravity; limb cannot get to or maintain position. -: 3=No effort against gravity; limb falls. -: 4=No movement. -: UN=Amputation, joint fusion, explain in comments. 5. Responses (left arm): 0 5. Motor Functions (right arm): Alternate sides and extend each arm with palms down (90 degrees if sitting or 45 degrees for supine). -: 0=No drift;limb holds for full 10 seconds. -: 1=Drift; limb holds but drifts down before full 10 seconds, but does not hit bed. -: 2=Some effort against gravity; limb cannot get to or maintain position. -: 3=No effort against gravity; limb falls. -: 4=No movement. -: UN=Amputation, joint fusion, explain in comments. 5. Responses (right arm): 0 6. Motor Functions (left leg): With patient lying supine, alternate sides and extend each leg (30 degrees always while supine). -: 0=No drift, leg holds position for full 5 seconds -: 1=Drift; leg falls before full 5 seconds but does not hit bed. -: 2=Some effort against gravity, leg falls to bed but some effort against gravity. -: 3=No effort against gravity, leg falls to bed immediately. -: 4=No movement. -: UN=Amputation, joint fusion; explain in comments. 6. Responses (left leg): 0 6. Motor Functions (right leg): With patient lying supine, alternate sides and extend each leg (30 degrees always while supine). -: 0=No drift, leg holds position for full 5 seconds -: 1=Drift; leg falls before full 5 seconds but does not hit bed. -: 2=Some effort against gravity, leg falls to bed but some effort against gravity. -: 3=No effort against gravity, leg falls to bed immediately. -: 4=No movement. -: UN=Amputation, joint fusion; explain in comments. 6. Responses (right leg): 0 7. Limb Ataxia: With eyes open instruct patient to: -: a. "Touch your finger to your nose". -: b. "Touch your heel to your carreno" -: 0=Absent -: 1=Present in one limb. -: 2=Present in two limbs. -: UN=Amputation or joint fusion; explain in comments. 7. Responses: 0 8. Sensory: Test sensation using pinprick or noxious stimuli. Test as many body parts as possible. -: 0=Normal;no sensory loss -: 1=Mile to moderate sensory loss (patient feels pin prick but is less sharp on affected side). -: 2=Severe or total sensory loss. 8. Responses: 1 - decreased sensation with sharp/dull 9. Best Language: Instruct patient to: -: a. "Describe what you see in this picture." -: b. "Name the items in this picture." -: c. "Read these sentences." -: 0=No aphasia, normal -: 1=Mild to moderate aphasia. -: 2=Severe aphasia -: 3=Mute, global aphasia, no usable speech or auditory comprehension. 9. Responses: 0 10. Articulation, Dysarthia: Instruct patient to: -: "Read these words" or "Repeat these words" -: 0=Normal -: 1=Mild to moderate; patient may slur some words but can be understood without difficulty. -: 2=Severe; patients speech so slurred as to be unintelligible in the absence of dysphasia. -: UN=Intubated or other physical barrier, explain in comments. 10. Responses: 1 11. Extinction or inattention: 0=No abnormality -: 1= Visual, tactile, auditory, spatial, or personal inattention or extinction to bilateral simulation in one or the sensory modalities. -: 2=Profound perla-inattention or perla-inattention to more than one modality; does not recognize own hand. 11. Responses: 0 Total Score: 2 <JENNY HUTSON - Last Filed: 01/10/17 23:42> Discharge <JENNY HUTSON - Last Filed: 01/10/17 23:42> - Discharge Admitting Provider: [facility] Admitted: HORACIO Mercado Attestation: 01/11/17 00:10 I personally performed the services described in the documentation, reviewed and edited the documentation which was dictated to the scribe in my presence, and it accurately records my words and actions. <YANE SHELLEY - Last Filed: 01/11/17 00:10> - Discharge Clinical Impression: Acute right SUPPORT ASSISTANT stroke, Paroxysmal atrial fibrillation Condition: Fair Disposition: ADMITTED INPATIENT Referrals: SYDNEY RING MD [Primary Care Provider] - Follow up as needed Scribe Documentation - Scribe Written by Buffyibe:: Jess Zhang, 01/10/2017 21:30 acting as scribe for :: Keri <JENNY HUTSON - Last Filed: 01/10/17 23:42>
[2017-01-10 21:33] LABS: CREATINE KINASE MB 1.18 ng/mL (<4.55)
[2017-01-10 21:38] LABS: TROPONIN I < 0.012 ng/mL
[2017-01-10 23:49] LABS: APPEARANCE,URINE CLEAR; BILIRUBIN,URINE NEGATIVE (NEGATIVE); GLUCOSE, URINE NEGATIVE (NEGATIVE); KETONES,URINE NEGATIVE (NEGATIVE); LEUKOCYTE ESTERASE,URINE NEGATIVE (NEGATIVE); NITRITE,URINE NEGATIVE (NEGATIVE); PROTEIN,URINE NEGATIVE (NEGATIVE); UROBILINOGEN,URINE NEGATIVE mg/dL (<2.0)
--- NOTE | 2017-01-11 00:05 | XCELERA REPORT ---
[address] [address] Transthoracic Echocardiogram Report Name: ISAK DE JESUS Age: 56 yrs Gender: Male : 1960 Patient Status: Emergency Patient Location: ER Study Date: 01/10/2017 10:55 PM Height: 67 in Weight: 203 lb BSA: 2.0 m2 Procedure: A complete two-dimensional transthoracic echocardiogram was performed (2D, M-mode, spectral and color flow Doppler). The study was technically adequate with some images being suboptimal in quality. Reason For Study: possible atrial clot, new stroke Ordering Physician: YANE SHELLEY Performed By: eSda Mcgee Interpretation Summary The left ventricle is grossly normal size. The left ventricular ejection fraction is normal. Left ventricular systolic function is borderline reduced. Doppler measurements suggest pseudonormalized left ventricular relaxation, which is associated with grade II/IV or mild to moderate diastolic dysfunction Wall motion cannot be accurately commented on, but no definite regional wall motion abnormalities noted. The right ventricular systolic function is normal. The right atrium is normal. The left atrium is mildly dilated. There is a trace amount of mitral regurgitation There is no mitral valve stenosis. No aortic regurgitation is present. There is no aortic valve stenosis There is a trace amount of tricuspid regurgitation Tricuspid regurgitation jet envelope not well defined to measure RV systolic pressure accurately. The aortic root is not well visualized. The inferior vena cava appeared normal and decreased > 50% with respiration (RAP 5-10 mmHg) There is no pericardial effusion. No definite cardiac source of CVA/TIA noted on this particular trans- thoracic study. May consider mobile cardiac telemetry monitoring (MCT) for ruling out transient AFIB. Consider HERBIE if clinically indicated. MMode/2D Measurements & Calculations RVDd: 2.5 cm LVIDd: 5.7 cm FS: 38.3 % Ao root diam: 2.7 cm IVSd: 1.0 cm LVIDs: 3.5 cm EDV(Teich): 159.2 ml LVPWd: 1.0 cm ESV(Teich): 51.1 ml Ao root area: 5.8 cm2 EF(Teich): 67.9 % LA dimension: 4.4 cm Doppler Measurements & Calculations MV E max kelly: MV P1/2t max kelly: Ao V2 max: LV V1 max P.2 cm/sec 101.2 cm/sec 167.0 cm/sec 6.5 mmHg MV A max kelly: MV P1/2t: 63.8 msec Ao max PG: LV V1 max: 68.1 cm/sec 11.1 mmHg 127.3 cm/sec MV E/A: 1.5 MVA(P1/2t): 3.4 cm2 MV dec slope: 464.2 cm/sec2 MV dec time: 0.21 sec PA V2 max: TR max kelly: 101.7 cm/sec 195.5 cm/sec PA max PG: TR max P.3 mmHg 4.1 mmHg Left Ventricle The left ventricle is grossly normal size. The left ventricular ejection fraction is normal. Left ventricular systolic function is borderline reduced. Doppler measurements suggest pseudonormalized left ventricular relaxation, which is associated with grade II/IV or mild to moderate diastolic dysfunction. Wall motion cannot be accurately commented on, but no definite regional wall motion abnormalities noted. Right Ventricle The right ventricle is grossly normal size. There is normal right ventricular wall thickness. The right ventricular systolic function is normal. Atria The right atrium is normal. The left atrium is mildly dilated. Interarterial septum not well visualized and not well dopplered. Cannot comment on ASD/PFO presence. Mitral Valve The mitral valve is grossly normal. There is no mitral valve stenosis. There is a trace amount of mitral regurgitation. Aortic Valve The aortic valve is grossly normal. There is no aortic valve stenosis. No aortic regurgitation is present. Tricuspid Valve The tricuspid valve is not well visualized, but is grossly normal. There is no tricuspid stenosis. There is a trace amount of tricuspid regurgitation. Tricuspid regurgitation jet envelope not well defined to measure RV systolic pressure accurately. Pulmonic Valve The pulmonic valve is not well visualized. Great Vessels The aortic root is not well visualized. The inferior vena cava appeared normal and decreased > 50% with respiration (RAP 5-10 mmHg). Effusions There is no pericardial effusion. Incidental Findings No definite cardiac source of CVA/TIA noted on this particular trans- thoracic study. Consider HERBIE if clinically indicated. May consider mobile cardiac telemetry monitoring (MCT) for ruling out transient AFIB. : YANE SHELLEY > Bessie Boo
[2017-01-11] MEDS ORDERED: ENOXAPARIN SODIUM INJ 100 MG/1 ML DISP.SYRIN SUBCUT ONE (00:09)
[2017-01-11] MEDS ORDERED: ACETAMINOPHEN 325 MG TABLET PO PRN (00:11)
[2017-01-11] MEDS ORDERED: DOCUSATE SODIUM 100 MG CAPSULE PO PRN (00:13)
[2017-01-11] MEDS ORDERED: HYDROCODONE/ACETAMINOPHEN 5-325 MG TABLET PO PRN (00:13)
[2017-01-11] MEDS ORDERED: MAGNESIUM HYDROXIDE SUSP 30 ML UDCUP PO PRN (00:13)
[2017-01-11] MEDS ORDERED: ASPIRIN 325 MG TABLET ONE (00:42)
[2017-01-11] MEDS ORDERED: ASPIRIN 325 MG TABLET PO ONE (00:43)
[2017-01-11 05:25] LABS: ABSOLUTE BASOPHILS # (AUTO) 0.1 10^3/uL (0.0-0.2); ABSOLUTE EOSINOPHILS # (AUTO) 0.2 10^3/uL (0.0-0.6); ABSOLUTE LYMPHOCYTES (AUTO) 2.8 10^3/uL (0.5-4.7); ABSOLUTE MONOCYTES (AUTO) 0.6 10^3/uL (0.1-1.4); ABSOLUTE NEUT (AUTO) 3.6 10^3/uL (1.7-8.2); BASOPHILS % (AUTO) 1.7 % (0-2); EOSINOPHILS % (AUTO) 2.6 % (0-6); HEMATOCRIT 35.9 % (37.9-51.0); HEMOGLOBIN 11.4 g/dL (13.5-17.0); HGB HCT DIFFERENCE -1.7; LYMPHOCYTES % (AUTO) 38.5 % (13-45); MEAN CORPUSCULAR HEMOGLOBIN 20.5 pg (27.0-33.4); MEAN CORPUSCULAR HGB CONC 31.7 g/dL (32.0-36.0); MEAN CORPUSCULAR VOLUME 65 fl (80-97); MONOCYTES % (AUTO) 8.5 % (3-13); RED BLOOD COUNT 5.58 10^6/uL (4.35-5.55); SEGMENTED NEUTROPHILS % (AUTO) 48.7 % (42-78); WHITE BLOOD COUNT 7.4 10^3/uL (4.0-10.5)
[2017-01-11 06:20] LABS: ANISOCYTOSIS SLIGHT; HYPOCHROMASIA 2+; MICROCYTOSIS 3+; POLYCHROMASIA 1+
[2017-01-11 06:21] LABS: OVALOCYTES 1+; POIKILOCYTOSIS SLIGHT; SCHISTOCYTES SLIGHT; TARGET CELLS 1+
--- NOTE | 2017-01-11 07:26 | PDOC H&P ---
History of Present Illness Admission Date/PCP: 01/11/17 00:13 SYDNEY RING MD Patient complains of: Headache and intermittent left sided weakness History of Present Illness: ISAK DE JESUS is a 56 year old male with a past medical history of tobacco dependence, obstructive sleep apnea, chronic headache, hypertension, dyslipidemia, GERD, CVA and A. gaudencio who discontinued anticoagulation 2 weeks ago for colonoscopy with polypectomy. Patient presents with 12 hours of intermittent symptoms severe headache, left arm and leg weakness. In the emergency room he is found to have mild slurred speech and numbness to the left arm. CT head imaging and 2D echo is unremarkable, INR is subtherapeutic and he is referred to the hospitalist for admission. Patient otherwise denies chest pain shortness of breath palpitations nausea or vomiting. Past Medical History Cardiac Medical History: Reports: Atrial Fibrillation, Hyperlipidema, Hypertension GI Medical History: Reports: Gastroesophageal Reflux Disease Musculoskeltal Medical History: Denies: Arthritis Hematology: Denies: Anemia Past Surgical History Past Surgical History: Reports: Appendectomy, Orthopedic Surgery - right elbow, WRIST, KNEE, SHOULDER Social History Information Source: Patient, Emergency Med Personnel, [facility] Records Smoking Status: Current Every Day Smoker Cigarettes Packs Per Day: 6 Frequency of Alcohol Use: None Hx Recreational Drug Use: No Hx Prescription Drug Abuse: No - Advance Directive Resuscitation Status: Full Code Family History Family History: CVA, Hypertension Parental Family History Reviewed: Yes Children Family History Reviewed: Yes Sibling(s) Family History Reviewed.: Yes Medication/Allergy Home Medications: Esomeprazole Magnesium [Nexium] 40 mg PO DAILY 04/11/15 Cyanocobalamin (Vitamin B-12) [Vitamin B-12 1000 mcg Tablet] 1,000 mcg PO DAILY #90 tablet 07/02/15 Ubidecarenone/Vit E Acet [Co Q-10 100 mg Softgel] 1 each PO DAILY #90 capsule Aspirin [Adult Low Dose Aspirin EC] 81 mg PO DAILY #30 tablet. 09/15/15 Digoxin [Lanoxin 0.125 mg Tablet] 0.125 mg PO DAILY #30 tablet 09/15/15 Pravastatin Sodium 40 mg PO QHS #30 tablet 09/15/15 Warfarin Sodium [Coumadin 5 mg Tablet] 5 mg PO QHS #30 tablet 09/15/15 Ciprofloxacin HCl [Cipro] 500 mg PO BID 01/11/17 Clomiphene Citrate [Clomiphene Citrate] 25 mg PO DAILY 01/11/17 Telmisartan [Telmisartan] 40 mg PO DAILY 01/11/17 Allergies/Adverse Reactions: atorvastatin calcium [From Lipitor] Allergy (Verified 01/10/17 22:25) bupropion HCl [From Wellbutrin] Allergy (Verified 01/10/17 22:25) Review of Systems Constitutional: ABSENT: chills, fever(s), headache(s), weight gain, weight loss Eyes: ABSENT: visual disturbances Ears: ABSENT: hearing changes Cardiovascular: ABSENT: chest pain, dyspnea on exertion, edema, orthropnea, palpitations Respiratory: ABSENT: cough, hemoptysis Gastrointestinal: ABSENT: abdominal pain, constipation, diarrhea, hematemesis, hematochezia, nausea, vomiting Genitourinary: ABSENT: dysuria, hematuria Musculoskeletal: ABSENT: joint swelling Integumentary: ABSENT: rash, wounds Neurological: ABSENT: abnormal gait, abnormal speech, confusion, dizziness, focal weakness, syncope Psychiatric: ABSENT: anxiety, depression, homidical ideation, suicidal ideation Endocrine: ABSENT: cold intolerance, heat intolerance, polydipsia, polyuria Hematologic/Lymphatic: ABSENT: easy bleeding, easy bruising Physical Exam Vital Signs: Temp Pulse Resp BP Pulse Ox 97.6 F 60 20 130/70 H 96 01/11/17 02:03 01/11/17 02:03 01/11/17 02:03 01/11/17 02:03 01/11/17 02:03 Intake & Output 01/09/17 01/10/17 01/11/17 11:59 11:59 11:59 Output Total 240 Balance -240 Weight 91.2 kg General appearance: PRESENT: no acute distress, well-developed, well-nourished Head exam: PRESENT: atraumatic, normocephalic Eye exam: PRESENT: conjunctiva pink, EOMI, PERRLA. ABSENT: scleral icterus Ear exam: PRESENT: normal external ear exam Mouth exam: PRESENT: moist, tongue midline Neck exam: ABSENT: carotid bruit, JVD, lymphadenopathy, thyromegaly Respiratory exam: PRESENT: clear to auscultation michele. ABSENT: rales, rhonchi, wheezes Cardiovascular exam: PRESENT: RRR. ABSENT: diastolic murmur, rubs, systolic murmur Pulses: PRESENT: normal dorsalis pedis pul Vascular exam: PRESENT: normal capillary refill GI/Abdominal exam: PRESENT: normal bowel sounds, soft. ABSENT: distended, guarding, mass, organolmegaly, rebound, tenderness Rectal exam: PRESENT: deferred Extremities exam: PRESENT: full ROM. ABSENT: calf tenderness, clubbing, pedal edema Neurological exam: PRESENT: alert, awake, oriented to person, oriented to place , oriented to time, oriented to situation, CN II-XII grossly intact. ABSENT: motor sensory deficit Psychiatric exam: PRESENT: appropriate affect, normal mood. ABSENT: homicidal ideation, suicidal ideation Skin exam: PRESENT: dry, intact, warm. ABSENT: cyanosis, rash Results Laboratory Results: 01/11/17 04:57 01/11/17 04:57 WBC 7.4 RBC 5.58 H Hgb 11.4 L Hct 35.9 L MCV 65 L MCH 20.5 L MCHC 31.7 L RDW 15.0 H Plt Count 208 Seg Neutrophils % 48.7 Lymphocytes % 38.5 Monocytes % 8.5 Eosinophils % 2.6 Basophils % 1.7 Absolute Neutrophils 3.6 Absolute Lymphocytes 2.8 Absolute Monocytes 0.6 Absolute Eosinophils 0.2 Absolute Basophils 0.1 Impressions: Chest X-Ray 01/10/17 00:00 IMPRESSION: NO ACUTE RADIOGRAPHIC FINDING IN THE CHEST. Head CT 01/10/17 00:00 IMPRESSION: Increased conspicuity of right occipital lobe geographic hypoattenuation suggesting acute on chronic ischemic injury. No evidence of hemorrhagic conversion. 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 Assessment & Plan - Diagnosis (1) Paroxysmal atrial fibrillation Is this a current diagnosis for this admission?: Yes Plan: Currently in sinus, resume Coumadin with Lovenox bridge. (2) Left sided numbness Is this a current diagnosis for this admission?: Yes Plan: Likely TIA complicated by paroxysmal atrial fibrillation and subtherapeutic INR. Consider additional imaging, physical and occupational therapy (3) BHAVANI (obstructive sleep apnea) Plan: CPAP (4) Tobacco dependence Is this a current diagnosis for this admission?: Yes Plan: Tobacco Dependence patient received tobacco cessation counseling and offered nicotine replacement options (5) Chronic headache Is this a current diagnosis for this admission?: Yes Plan: Documented on prior admission, questionable cephalalgia medicamentosa. Symptomatic management - Time Time Spent: 50 to 70 Minutes - Inpatient Certification Medical Necessity: Need Close Monitoring Due to Risk of Patient Decompensation
--- NOTE | 2017-01-11 09:30 | RADIOLOGY REPORT (SQ) ---
EXAM DESCRIPTION: MRI HEAD WITHOUT COMPLETED DATE/TIME: 01/11/2017 8:58 am REASON FOR STUDY: cva COMPARISON: 07/01/2015 TECHNIQUE: Multiplanar imaging includes non-contrasted T1, T2, FLAIR, and diffusion with ADC map seq uences. Images stored on PACS. LIMITATIONS: Motion. FINDINGS: ANATOMY: No anomalies. Normal vascular flow voids. Pituitary fossa normal. CSF SPACES: Normal in size and contour. No hemorrhage. CEREBRUM: Geographic increased signal on FLAIR sequence in the right parietal occipital lobe, and mor e superior right parietal lobe. Bright on diffusion and dark on ADC map consistent with recent infar ct. No hemorrhage or significant mass effect. POSTERIOR FOSSA: No signal alteration. No hemorrhage. No edema, masses or mass effect. Internal armando tory canals, cerebello-pontine angles, mastoids normal. DIFFUSION IMAGING: See above. ORBITS: No masses. Globes normal. PARANASAL SINUSES: No fluid levels. Mucosa normal. OTHER: No other significant finding. IMPRESSION: Acute, nonhemorrhagic infarcts in the right MCA and SQL DATABASE ADMINISTRATOR distribution. EVIDENCE OF ACUTE STROKE: YES. Right MCA and SQL DATABASE ADMINISTRATOR. TECHNICAL DOCUMENTATION: JOB ID: [id number] [employer]- All Rights Reserved
[2017-01-11] MEDS ORDERED: (PENDING PHARMACY ID) (Ubidecarenone/Vit E Acet [Co Q-10 100 Mg Softgel] 1 EACH) PO SCH (10:00)
[2017-01-11] MEDS ORDERED: CLOMIPHENE CITRATE PO SCH (10:30)
--- NOTE | 2017-01-11 10:43 | PDOC PROGRESS REPORT ---
Subjective Progress Note for:: 01/11/17 Subjective:: The patient is a pleasant 56-year-old gentleman with a past medical history significant for hypertension, hyperlipidemia, paroxysmal atrial fibrillation and obstructive sleep apnea. He has a history of a CVA in the past. He follows with Dr. Sanjay Jiang at [facility] internal medicine. 6 days ago the patient had a colonoscopy performed by Dr. Elizabeth Bojorquez from the GI service at [facility]. He had 7 polyps removed during that procedure and the recommendation was to be off of his aspirin and anticoagulation for 2 weeks. The patient presented to the emergency room with a 12 hour history of severe headache. He initially had left arm and hemiparesis which has since resolved. He had mild slurred speech and numbness to the left arm. He was referred for admission. He had a 2D echocardiogram which was unremarkable. 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 He was started on full dose Lovenox. This morning the patient had an MRI which revealed an acute CVA in the right MCA distribution as well as an acute COMPUTING SYSTEMS MECHANIC infarct. Fortunately almost all of his symptoms have resolved. He is fairly adamant that he does not want to go back on Coumadin. Apparently he has been told in the past that he is not a candidate for Eliquis due to ischemic changes noted on his CT scan of the brain. 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 We will see if they feel as if he is a candidate for Xarelto which they would like to try at the time of discharge. Today the patient states that almost all of his symptoms have resolved. The patient's feels as if she has some mild speech deficits. He is not having any difficulty swallowing. He denies fever chills. No chest pain, shortness of breath or heart palpitations. No nausea, vomiting or diarrhea. No abdominal pain. No dysuria, frequency or hematuria. Physical Exam Vital Signs: Temp Pulse Resp BP Pulse Ox 97.7 F 55 L 20 146/80 H 95 01/11/17 07:55 01/11/17 07:55 01/11/17 07:55 01/11/17 07:55 01/11/17 07:55 Intake & Output 01/10/17 01/11/17 01/12/17 06:59 06:59 06:59 Output Total 240 Balance -240 Weight 91.2 kg General appearance: PRESENT: no acute distress, well-developed, well-nourished Head exam: PRESENT: atraumatic, normocephalic Eye exam: PRESENT: conjunctiva pink, EOMI, PERRLA. ABSENT: scleral icterus Mouth exam: PRESENT: moist, tongue midline Neck exam: ABSENT: carotid bruit, JVD, lymphadenopathy, thyromegaly Respiratory exam: PRESENT: clear to auscultation michele. ABSENT: rales, rhonchi, wheezes Cardiovascular exam: PRESENT: RRR. ABSENT: diastolic murmur, rubs, systolic murmur Pulses: PRESENT: normal dorsalis pedis pul GI/Abdominal exam: PRESENT: normal bowel sounds, soft. ABSENT: distended, guarding, mass, organolmegaly, rebound, tenderness Rectal exam: PRESENT: deferred Extremities exam: PRESENT: full ROM. ABSENT: calf tenderness, clubbing, pedal edema Neurological exam: PRESENT: alert, awake, oriented to person, oriented to place , oriented to time, oriented to situation, CN II-XII grossly intact. ABSENT: motor sensory deficit Psychiatric exam: PRESENT: appropriate affect, normal mood. ABSENT: homicidal ideation, suicidal ideation Skin exam: PRESENT: dry, intact, warm. ABSENT: cyanosis, rash Results Laboratory Results: 01/11/17 04:57 01/11/17 04:57 WBC 7.4 RBC 5.58 H Hgb 11.4 L Hct 35.9 L MCV 65 L MCH 20.5 L MCHC 31.7 L RDW 15.0 H Plt Count 208 Seg Neutrophils % 48.7 Lymphocytes % 38.5 Monocytes % 8.5 Eosinophils % 2.6 Basophils % 1.7 Absolute Neutrophils 3.6 Absolute Lymphocytes 2.8 Absolute Monocytes 0.6 Absolute Eosinophils 0.2 Absolute Basophils 0.1 Impressions: Chest X-Ray 01/10/17 00:00 IMPRESSION: NO ACUTE RADIOGRAPHIC FINDING IN THE CHEST. Head CT 01/10/17 00:00 IMPRESSION: Increased conspicuity of right occipital lobe geographic hypoattenuation suggesting acute on chronic ischemic injury. No evidence of hemorrhagic conversion. EVIDENCE OF ACUTE STROKE: Yes subacute right COMPUTING SYSTEMS MECHANIC. Head MRI 01/11/17 00:00 IMPRESSION: Acute, nonhemorrhagic infarcts in the right MCA and COMPUTING SYSTEMS MECHANIC distribution. EVIDENCE OF ACUTE STROKE: YES. Right MCA and COMPUTING SYSTEMS MECHANIC. Assessment & Plan - Diagnosis (1) Acute CVA (cerebrovascular accident) Is this a current diagnosis for this admission?: Yes Plan: The patient has had an acute infarct in the right MCA distribution as well as COMPUTING SYSTEMS MECHANIC infarct. This is likely an embolic infarct due to his paroxysmal atrial fibrillation. Currently on full dose Lovenox. He has been started back on an 81 mg aspirin. The patient would like to go on Xarelto at the time of discharge. We have consulted his medical service representative for further recommendations on anticoagulation. (2) Paroxysmal atrial fibrillation Is this a current diagnosis for this admission?: Yes Plan: The patient has remained in a sinus rhythm since the time of admission. It appears that he has had an embolic stroke. He has been started on full dose Lovenox. Cardiology has been consulted for their recommendations on anticoagulation. (3) HTN (hypertension) Qualifiers: Hypertension type: essential hypertension Qualified Code(s): I10 - Essential (primary) hypertension Is this a current diagnosis for this admission?: Yes Plan: I am going to hold his blood pressure medicine today to allow for permissive hypertension. His blood pressure is actually not too bad. We can restart his blood pressure medication at discharge. (4) Hyperlipidemia Is this a current diagnosis for this admission?: Yes Plan: Continue pravastatin. (5) BHAVANI (obstructive sleep apnea) Plan: Continue CPAP at night. (6) Anemia Is this a current diagnosis for this admission?: Yes Plan: The patient has a microcytic anemia. He had a colonoscopy performed last week. He had 7 polyps removed during this procedure. His hemoglobin is stable so far. I would like to keep him in the hospital tonight to monitor and make sure that his hemoglobin does not drop after restarting his aspirin and anticoagulation. (7) Hypernatremia Plan: This is quite mild. We will recheck a level in the morning. (8) Headache Plan: Likely due to acute CVA. Improving - Time Time Spent with patient: 25-34 minutes - Inpatient Certification Medical Necessity: Need for Neurological Checks, Other - Inpatient hospitalization remains necessary. Patient has had an acute CVA. He has been started back on anticoagulation and aspirin therapy much sooner than his GI doctor would like. He had 7 polyps removed 6 days ago. I would like to watch him in the hospital at least overnight to make sure that his hemoglobin does not drop. We also are going to consult his medical service representative for consideration of the best sort of anticoagulation going forward.
[2017-01-11] MEDS: LANSOPRAZOLE 30 MG TAB.RAP.DR PO SCH (10:48)
[2017-01-11] MEDS: CYANOCOBALAMIN (VITAMIN B-12) 1,000 MCG TABLET PO SCH (10:49)
[2017-01-11] MEDS: ASPIRIN 81 MG TABLET, ENT COATED PO SCH (10:49)
[2017-01-11] MEDS: LISINOPRIL 5 MG TABLET PO SCH (10:54)
[2017-01-11] MEDS: FLUTICASONE NASAL SPRAY 50 MCG/SPRY 120 SPRAY/16 GM NASL SCH (10:54)
[2017-01-11] MEDS: DIGOXIN 0.125 MG TABLET PO SCH (10:54)
[2017-01-11] MEDS ORDERED: ENOXAPARIN SODIUM INJ 100 MG/1 ML DISP.SYRIN SUBCUT SCH (12:00)
--- NOTE | 2017-01-11 13:41 | PDOC CONSULTATION ---
Consultation Consult Date: 01/11/17 Attending physician:: BOY CROWELL Consult reason:: Cerebrovascular accident History of Present Illness Admission Date/PCP: 01/11/17 00:13 SYDNEY RING MD Patient complains of: Left-sided weakness History of Present Illness: ISAK DE JESUS is a 56 year old male with a past medical history of tobacco dependence, obstructive sleep apnea, chronic headache, hypertension, dyslipidemia, GERD, CVA and A. fib who discontinued anticoagulation 2 weeks ago for colonoscopy with polypectomy. Patient presents with 12 hours of intermittent symptoms severe headache, left arm and leg weakness. In the emergency room he is found to have mild slurred speech and numbness to the left arm. CT head imaging and 2D echo is unremarkable, INR is subtherapeutic and he is referred to the hospitalist for admission. Patient otherwise denies chest pain shortness of breath palpitations nausea or vomiting. This history was reviewed and confirmed. Patient gives history of diagnosed sleep apnea and sees me in the office for this problem. Patient also has history of paroxysmal atrial fibrillation with prior cerebrovascular accident but was not on chronic anticoagulation therapy. Patient does follow-up with Dr. Coffman for chronic atrial fibrillation. Patient claims he had had event monitors which were relatively unremarkable except showing atrial fibrillation on the last day of the monitor. Patient claims to be feeling much improved since discharge. He was earlier on Coumadin but does not want to be on Coumadin anymore. Patient describes side effects to Eliquis in the past. Past Medical History Cardiac Medical History: Reports: Atrial Fibrillation, Hyperlipidema, Hypertension Pulmonary Medical History: Reports: Chronic Obstructive Pulmonary Disease (COPD) , Sleep Apnea GI Medical History: Reports: Gastroesophageal Reflux Disease Musculoskeltal Medical History: Denies: Arthritis Hematology: Denies: Anemia Past Surgical History Past Surgical History: Reports: Appendectomy, Orthopedic Surgery - right elbow, WRIST, KNEE, SHOULDER Social History Information Source: Patient Smoking Status: Current Every Day Smoker Cigarettes Packs Per Day: 6 Frequency of Alcohol Use: None Hx Recreational Drug Use: No Hx Prescription Drug Abuse: No - Advance Directive Resuscitation Status: Full Code Surrogate healthcare decision maker:: Patient's is the surrogate decision-maker Family History Family History: CVA, Hypertension Parental Family History Reviewed: Yes Children Family History Reviewed: Yes Sibling(s) Family History Reviewed.: Yes Medication/Allergy Home Medications: Esomeprazole Magnesium [Nexium] 40 mg PO DAILY 04/11/15 Cyanocobalamin (Vitamin B-12) [Vitamin B-12 1000 mcg Tablet] 1,000 mcg PO DAILY #90 tablet 07/02/15 Ubidecarenone/Vit E Acet [Co Q-10 100 mg Softgel] 1 each PO DAILY #90 capsule Aspirin [Adult Low Dose Aspirin EC] 81 mg PO DAILY #30 tablet. 09/15/15 Digoxin [Lanoxin 0.125 mg Tablet] 0.125 mg PO DAILY #30 tablet 09/15/15 Pravastatin Sodium 40 mg PO QHS #30 tablet 09/15/15 Warfarin Sodium [Coumadin 5 mg Tablet] 5 mg PO QHS #30 tablet 09/15/15 Clomiphene Citrate [Clomiphene Citrate] 25 mg PO DAILY 01/11/17 Telmisartan [Telmisartan] 40 mg PO DAILY 01/11/17 Allergies/Adverse Reactions: atorvastatin calcium [From Lipitor] Allergy (Verified 01/10/17 22:25) bupropion HCl [From Wellbutrin] Allergy (Verified 01/10/17 22:25) Review of Systems Review of Systems: Please see history of present illness and past medical history as wall. Constitutional: No fever or chills reported. Head : Describes recent headaches but denied any recent head injury. Eyes: No recent eye pain, diplopia, redness, discharge, acute visual changes. Ears: No recent chronic ear pain, acute hearing loss, ear discharge. Oral cavity: No recent ulcerations, bleeding, oral cavity discomfort. Neck: No recent acute neck pain reported. Hematologic: No recent easy bruising or bleeding or hematologic malignancy reported. Lymphatic: No recent lymphatic malignancy, chronic lymphadenopathy reported yet Cardiovascular system review: See history of present illness. Respiratory system review: No recent chronic cough, hemoptysis, blood clots in the lungs reported. Mild Shortness of breath on exertion Gastrointestinal system review: Negative for any recent acute or chronic abdominal pain, hematemesis, melena, recent change in bowel habits. Genitourinary system review: No recent acute or chronic hematuria, flank pain, UTI etc. reported. Skin system review: Negative for any recent abnormal bruising, no rash, no pruritus reported. Neurologic: Questionable history of prior stroke but noted on previous CT scan. Patient has noted some left-sided weakness. Psychologic: No history of major psychosis or major depression reported. Musculoskeletal: Minor aches and pains reported. No acute joint swelling reported. Endocrine: No recent polyuria, polydipsia, recent heat or cold intolerance. Physical Exam Vital Signs: Temp Pulse Resp BP Pulse Ox 97.8 F 59 L 20 152/77 H 100 01/11/17 11:44 01/11/17 11:44 01/11/17 11:44 01/11/17 11:44 01/11/17 11:44 Intake & Output 01/10/17 01/11/17 01/12/17 06:59 06:59 06:59 Intake Total 0 Output Total 240 Balance -240 0 Weight 91.2 kg Exam: GENERAL: well-nourished and in no acute distress. Alert and oriented x3 HEAD: Atraumatic, normocephalic. EYES: Pupils equal round and reactive to light, extraocular movements intact, sclera anicteric, conjunctiva are normal. ENT: TMs normal, nares patent, oropharynx clear without exudates. Moist mucous membranes. No oral ulcerations or bleeding gums noted NECK: supple without lymphadenopathy. Trachea is central. No cervical or axillary lymphadenopathy noted. Carotids are 2+, JVD WNL LUNGS: Respiration seems nonlabored, no significant accessory muscle action noted. Breath sounds clear to auscultation bilaterally and equal noted. No wheezes rales or rhonchi noted. No significant dullness noted on percussion. CHEST: Palpation of the chest wall shows no significant chest wall tenderness. No other significant abnormalities noted. 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 ABDOMEN: Soft, no significant tenderness appreciated, normoactive bowel sounds. No guarding, no rebound. No rigidity noted . No masses appreciated. EXTREMITIES: Pedal pulses are 1-2+, no calf tenderness noted. No clubbing or cyanosis.trace to 1+ pedal edema noted NEUROLOGICAL: Focused neurological exam showed no significant neurologic deficit. Minimal focal weakness appreciated on the left side a full neurological exam was not performed. PSYCH: Normal mood, normal affect. Judgment and insight within normal limits. SKIN: No significant ecchymosis, rash, ulcerations or signs of pruritus noted. MUSCULOSKELETAL EXAM: No significant joint swelling noted. Results Laboratory Results: 01/11/17 04:57 01/11/17 04:57 WBC 7.4 RBC 5.58 H Hgb 11.4 L Hct 35.9 L MCV 65 L MCH 20.5 L MCHC 31.7 L RDW 15.0 H Plt Count 208 Seg Neutrophils % 48.7 Lymphocytes % 38.5 Monocytes % 8.5 Eosinophils % 2.6 Basophils % 1.7 Absolute Neutrophils 3.6 Absolute Lymphocytes 2.8 Absolute Monocytes 0.6 Absolute Eosinophils 0.2 Absolute Basophils 0.1 EKG Comments: Showed sinus rhythm. No acute ST-T wave changes noted. 2D echo shows normal LVEF, mildly enlarged left atrium but no definite thrombus noted. No significant valvular abnormalities noted. Impressions: Chest X-Ray 01/10/17 00:00 IMPRESSION: NO ACUTE RADIOGRAPHIC FINDING IN THE CHEST. Head CT 01/10/17 00:00 IMPRESSION: Increased conspicuity of right occipital lobe geographic hypoattenuation suggesting acute on chronic ischemic injury. No evidence of hemorrhagic conversion. 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 Head MRI 01/11/17 00:00 IMPRESSION: Acute, nonhemorrhagic infarcts in the right MCA and MEDICAL V[employer] DRIVER distribution. EVIDENCE OF ACUTE STROKE: YES. Right MCA and MEDICAL VAN DRIVER. 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 Is this a current diagnosis for this admission?: Yes (3) Headache Qualifiers: Headache type: unspecified Headache chronicity pattern: unspecified pattern Is this a current diagnosis for this admission?: Yes (4) Tobacco dependence Is this a current diagnosis for this admission?: Yes (5) BHAVANI (obstructive sleep apnea) Is this a current diagnosis for this admission?: Yes (6) HTN (hypertension) Qualifiers: Hypertension type: essential hypertension Qualified Code(s): I10 - Essential (primary) hypertension Is this a current diagnosis for this admission?: Yes (7) Hyperlipidemia Qualifiers: Hyperlipidemia type: unspecified Qualified Code(s): E78.5 - Hyperlipidemia , unspecified Is this a current diagnosis for this admission?: Yes - Notes Notes: Paroxysmal atrial fibrillation: Patient gives a history of paroxysmal atrial fibrillation. He has prior history of stroke and recently also had a recent/ subacute right posterior cerebral circulation stroke. Patient will benefit from chronic anticoagulation. In this regard offered patient chronic Coumadin therapy/Xarelto/Eliquis/Pradaxa therapy. Patient did not want to go on Eliquis at this point. Patient is willing to try Xarelto. He does not want to go on Coumadin. At this point have started patient on Xarelto 20 mg p.o. daily. Will recommend stopping Lovenox once he gets the first dose. Currently patient maintaining sinus rhythm. Continue other medications. Acute right posterior cerebral circulation stroke: Patient on Lovenox and aspirin. Patient to be switched over to Xarelto. Tobacco abuse: Patient advised to quit smoking. Obstructive sleep apnea syndrome: Patient advised to follow-up in the office since he has not done so in quite some time. We will need to make sure that patient respiratory events are being controlled. Hypertension: Recommend good control of blood pressure. Dyslipidemia: Patient claims allergy to side effects to be better. Patient was taking Pravachol at home. Patient was switched over to Pravachol. - Time Time Spent: 30 to 50 Minutes - CODE STATUS was discussed, patient remains full code. Surrogate decision-maker unchanged. Multiple medical problems were addressed. More than 50% of the time spent coordinating care, discussing management plans with involved caregivers. Management plans discussed with involved personnels. Medical decision making was of moderate to high complexity , patient's has multiple comorbidities. Medications reviewed and adjusted accordingly: Yes
[2017-01-11] MEDS ORDERED: RIVAROXABAN 10 MG TABLET PO ONE (19:10)
[2017-01-11] MEDS ORDERED: (PENDING PHARMACY ID) (Pravastatin Sodium [Pravastatin Sodium] 40 MG) PO SCH (22:00)
[2017-01-11] MEDS ORDERED: ATORVASTATIN CALCIUM 10 MG TABLET PO SCH (22:00)
[2017-01-11] MEDS ORDERED: PRAVASTATIN SODIUM 40 MG PO SCH (22:00)
[2017-01-12 05:40] LABS: ABSOLUTE BASOPHILS # (AUTO) 0.1 10^3/uL (0.0-0.2); ABSOLUTE EOSINOPHILS # (AUTO) 0.2 10^3/uL (0.0-0.6); ABSOLUTE LYMPHOCYTES (AUTO) 2.2 10^3/uL (0.5-4.7); ABSOLUTE MONOCYTES (AUTO) 0.6 10^3/uL (0.1-1.4); ABSOLUTE NEUT (AUTO) 4.4 10^3/uL (1.7-8.2); BASOPHILS % (AUTO) 1.2 % (0-2); EOSINOPHILS % (AUTO) 2.4 % (0-6); HEMATOCRIT 36.6 % (37.9-51.0); HEMOGLOBIN 11.7 g/dL (13.5-17.0); HGB HCT DIFFERENCE -1.5; LYMPHOCYTES % (AUTO) 29.7 % (13-45); MEAN CORPUSCULAR HEMOGLOBIN 20.7 pg (27.0-33.4); MEAN CORPUSCULAR HGB CONC 31.9 g/dL (32.0-36.0); MEAN CORPUSCULAR VOLUME 65 fl (80-97); MONOCYTES % (AUTO) 7.9 % (3-13); RED BLOOD COUNT 5.63 10^6/uL (4.35-5.55); RED CELL DISTRIBUTION WIDTH 15.1 % (11.5-14.0); SEGMENTED NEUTROPHILS % (AUTO) 58.8 % (42-78); WHITE BLOOD COUNT 7.5 10^3/uL (4.0-10.5)
[2017-01-12 05:56] LABS: ANION GAP 10 (5-19); BLOOD UREA NITROGEN 16 mg/dL (7-20); CALCIUM 8.8 mg/dL (8.4-10.2); CARBON DIOXIDE 24 mmol/L (22-30); CHLORIDE 110 mmol/L (98-107); CHOLESTEROL 99.81 mg/dL (0-200); CREATININE RESULT 0.91 mg/dL (0.52-1.25); Direct HDL 27 mg/dL (>40); GLUCOSE 94 mg/dL (75-110); MAGNESIUM 1.9 mg/dL (1.6-2.3); SODIUM 143.7 mmol/L (137-145); TRIGLYCERIDES 68 mg/dL (<150)
[2017-01-12 05:59] LABS: PROTHROMBIN TIME 15.7 SEC (11.4-15.4)
[2017-01-12 06:06] LABS: DIRECT LDL 69 mg/dL (<100)
--- NOTE | 2017-01-12 06:17 | EKG REPORT ---
SEVERITY:- NORMAL ECG - SINUS RHYTHM : Confirmed by: Lazaro Del Rio MD 12-Jan-2017 06:17:05
[2017-01-12] MEDS: FLUTICASONE NASAL SPRAY 50 MCG/SPRY 120 SPRAY/16 GM NASL SCH (09:12)
[2017-01-12] MEDS: CYANOCOBALAMIN (VITAMIN B-12) 1,000 MCG TABLET PO SCH (09:13)
[2017-01-12] MEDS: ASPIRIN 81 MG TABLET, ENT COATED PO SCH (09:13)
[2017-01-12] MEDS: DIGOXIN 0.125 MG TABLET PO SCH (09:13)
[2017-01-12] MEDS: LANSOPRAZOLE 30 MG TAB.RAP.DR PO SCH (09:13)
[2017-01-12] MEDS: LISINOPRIL 5 MG TABLET PO SCH (09:13)
[2017-01-12] MEDS ORDERED: (PENDING PHARMACY ID) (Telmisartan [Telmisartan] 40 MG) PO SCH (10:00)
--- NOTE | 2017-01-12 11:38 | RADIOLOGY REPORT (SQ) ---
EXAM DESCRIPTION: CAROTID DOPPLER COMPLETED DATE/TIME: 01/12/2017 11:30 am REASON FOR STUDY: cva COMPARISON: 04/11/2015 TECHNIQUE: Grayscale ultrasound, Doppler velocity and spectra, and color Doppler images acquired of the extra-cranial carotid and vertebral arteries. Images stored on PACS. LIMITATIONS: None. FINDINGS: RIGHT CAROTID CCA Velocities: Within normal limits. ICA Velocities Peak systolic 0.65 m/s. End diastolic 0.21 m/s. Proximal ICA/CCA peak systolic ratio 0.9. Spectra normal. No significant plaque. LEFT CAROTID CCA Velocities: Within normal limits. ICA Velocities Peak systolic 0.97 m/s. End diastolic 0.37 m/s. Proximal ICA/CCA peak systolic ratio 1.0. Spectra normal. No significant plaque. VERTEBRAL ARTERIES: Antegrade flow. Normal waveforms. SUBCLAVIAN ARTERIES: Not imaged. OTHER: No other significant finding. IMPRESSION: NO HEMODYNAMICALLY SIGNIFICANT STENOSIS. COMMENT: Quality ID #[id number]: Velocity criteria are extrapolated from the diameter data as defined by t he Society of Radiologists in Ultrasound Consensus Conference. Radiology 2003: 229; 340-346. TECHNICAL DOCUMENTATION: JOB ID: [id number] [email or web address]- All Rights Reserved
[2017-01-12 11:42] VITALS: BP 130/70
--- NOTE | 2017-01-12 14:27 | PDOC DISCHARGE SUMMARY ---
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 This is likely due to an embolic infarct due to his proximal atrial fibrillation. He was initially treated with full dose Lovenox and 81 mg aspirin. The patient was previously on Coumadin and declined to resume that medication. Echocardiogram and carotid Doppler studies were completed. Adaptive Physical Education Specialist was consulted for recommendations on anticoagulation and it was determined that the patient would benefit from Xarelto. On admission he had an intermittent severe headache, left arm and leg weakness, mild slurred speech and numbness to his left arm for approximately 12 hours. At time of discharge he mild slurred speech was noted by his only, otherwise, his symptoms had all resolved. (2) Anemia Is this a current diagnosis for this admission?: Yes Summary: This patient has microcytic anemia. He recently had a colonoscopy with multiple polyps removed during the procedure his hemoglobin has remained stable. He is restarted on his aspirin and will begin taking Xarelto for CVA in the setting of PAF. (3) Headache Is this a current diagnosis for this admission?: Yes Summary: Resolved. Patient with chronic headaches, however this headache is atypical for his normal headache pattern. It was likely due to an acute CVA. (4) BHAVANI (obstructive sleep apnea) Is this a current diagnosis for this admission?: Yes Summary: Continued CPAP at night. (5) Paroxysmal atrial fibrillation Is this a current diagnosis for this admission?: Yes Summary: Patient remained in sinus rhythm throughout his admission. It does appear that he had an embolic stroke shortly after stopping Coumadin therapy for colonoscopy with polypectomy. He was initially treated with full dose Lovenox and cardiology was consulted and he was transitioned to Xarelto based upon their recommendations. Echocardiogram was completed. (6) HTN (hypertension) Is this a current diagnosis for this admission?: Yes Summary: Blood pressure medications were held during admission to allow for permissive hypertension. BP moderately elevated to 150/80s PR: He will resume his home medications upon discharge. (7) Hyperlipidemia Is this a current diagnosis for this admission?: Yes Summary: Lipid panel was acceptable. Patient to continue on pravastatin. (8) Hypernatremia Summary: Resolved. - Additional Information Resuscitation Status: Full Code Discharge Diet: Cardiac Discharge Activity: Activity As Tolerated, Balance Activity w/Rest Home Medications: Esomeprazole Magnesium [Nexium] 40 mg PO DAILY 04/11/15 Cyanocobalamin (Vitamin B-12) [Vitamin B-12 1000 mcg Tablet] 1,000 mcg PO DAILY #90 tablet 07/02/15 Ubidecarenone/Vit E Acet [Co Q-10 100 mg Softgel] 1 each PO DAILY #90 capsule Aspirin [Adult Low Dose Aspirin EC] 81 mg PO DAILY #30 tablet. 09/15/15 Digoxin [Lanoxin 0.125 mg Tablet] 0.125 mg PO DAILY #30 tablet 09/15/15 Pravastatin Sodium 40 mg PO QHS #30 tablet 09/15/15 Clomiphene Citrate 25 mg PO DAILY 01/11/17 Telmisartan 40 mg PO DAILY 01/11/17 Rivaroxaban [Xarelto 10 mg Tablet] 20 mg PO 1700 #30 tablet 01/12/17 History of Present Illness History of Present Illness: Per H&P by Dr. Martinez: ISAK DE JESUS is a 56 year old male with a past medical history of tobacco dependence, obstructive sleep apnea, chronic headache, hypertension, dyslipidemia, GERD, CVA and A. fib who discontinued anticoagulation 2 weeks ago for colonoscopy with polypectomy. Patient presents with 12 hours of intermittent symptoms severe headache, left arm and leg weakness. In the emergency room he was found to have mild slurred speech and numbness to the left arm. CT head imaging and 2D echo is unremarkable, INR is subtherapeutic and he is referred to the hospitalist for admission. Patient otherwise denies chest pain shortness of breath palpitations nausea or vomiting. Physical Exam Vital Signs: Temp Pulse Resp BP Pulse Ox 98.3 F 89 18 130/70 H 96 01/12/17 11:38 01/12/17 11:38 01/12/17 11:38 01/12/17 11:38 01/12/17 11:38 Intake & Output 01/11/17 01/12/17 01/13/17 06:59 06:59 06:59 Intake Total 1139 Output Total 240 Balance -240 1139 Weight 91.2 kg 92.3 kg General appearance: PRESENT: no acute distress, disheveled, well-developed, well -nourished, other - overweight Head exam: PRESENT: atraumatic, normocephalic Eye exam: PRESENT: conjunctiva pink, EOMI, PERRLA. ABSENT: scleral icterus Ear exam: PRESENT: normal external ear exam Mouth exam: PRESENT: moist, tongue midline Neck exam: ABSENT: carotid bruit, JVD, lymphadenopathy, thyromegaly Respiratory exam: PRESENT: clear to auscultation michele. ABSENT: rales, rhonchi, wheezes Cardiovascular exam: PRESENT: RRR. ABSENT: diastolic murmur, rubs, systolic murmur Pulses: PRESENT: normal dorsalis pedis pul Vascular exam: PRESENT: normal capillary refill GI/Abdominal exam: PRESENT: normal bowel sounds, soft. ABSENT: distended, guarding, mass, organolmegaly, rebound, tenderness Rectal exam: PRESENT: deferred Extremities exam: PRESENT: full ROM. ABSENT: calf tenderness, clubbing, pedal edema Musculoskeletal exam: PRESENT: ambulatory, full ROM, normal inspection Neurological exam: PRESENT: alert, awake, oriented to person, oriented to place , oriented to time, oriented to situation, CN II-XII grossly intact. ABSENT: motor sensory deficit Psychiatric exam: PRESENT: appropriate affect, normal mood. ABSENT: homicidal ideation, suicidal ideation Skin exam: PRESENT: dry, intact, warm. ABSENT: cyanosis, rash Results Laboratory Results: 01/12/17 05:08 01/12/17 05:08 01/12/17 01/12/17 05:08 05:08 WBC 7.5 RBC 5.63 H Hgb 11.7 L Hct 36.6 L MCV 65 L MCH 20.7 L MCHC 31.9 L RDW 15.1 H Plt Count 202 Seg Neutrophils % 58.8 Lymphocytes % 29.7 Monocytes % 7.9 Eosinophils % 2.4 Basophils % 1.2 Absolute Neutrophils 4.4 Absolute Lymphocytes 2.2 Absolute Monocytes 0.6 Absolute Eosinophils 0.2 Absolute Basophils 0.1 Sodium 143.7 Potassium 4.0 Chloride 110 H Carbon Dioxide 24 Anion Gap 10 BUN 16 Creatinine 0.91 Est GFR ( Amer) > 60 Est GFR (Non-Af Amer) > 60 Glucose 94 Calcium 8.8 Magnesium 1.9 Triglycerides 68 Cholesterol 99.81 LDL Cholesterol Direct 69 VLDL Cholesterol 14.0 HDL Cholesterol 27 L Impressions: Chest X-Ray 01/10/17 00:00 IMPRESSION: NO ACUTE RADIOGRAPHIC FINDING IN THE CHEST. Head CT 01/10/17 00:00 IMPRESSION: Increased conspicuity of right occipital lobe geographic hypoattenuation suggesting acute on chronic ischemic injury. No evidence of hemorrhagic conversion. 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 Head MRI 01/11/17 00:00 IMPRESSION: Acute, nonhemorrhagic infarcts in the right MCA and CYBER [employer]Y [employer] STRATEGY PLANNER distribution. EVIDENCE OF ACUTE STROKE: YES. Right MCA and CYBER POLICY AND STRATEGY PLANNER. Carotid Doppler Study 01/12/17 00:00 IMPRESSION: NO HEMODYNAMICALLY SIGNIFICANT STENOSIS. Qualifiers PATEINT BEING DISCHARGED WITH ANY OF THE FOLLOWING DIAGNOSIS?: Stroke Stroke Pt being discharged on Anti-coagulation therapy?: Yes Stroke Pt being discharged on Statins?: Yes
[2017-01-12] MEDS ORDERED: RIVAROXABAN 10 MG TABLET PO SCH (17:00)
[2017-01-13] MEDS ORDERED: LANSOPRAZOLE 30 MG TAB.RAP.DR PO SCH (06:00)
--- NOTE | 2017-01-13 16:19 | PDOC PROGRESS REPORT ---
Subjective Progress Note for:: 01/12/17 Subjective:: Patient seems to be doing better with gradual improvement. Pt is denying any chest arm or neck discomfort. Patient denying any PND, orthopnea. Patient denied any sustained palpitations, dizziness, syncope, near syncope. Patient denying any fever chills. Patient denying any other significant discomfort. Patient is maintaining sinus rhythm. Review of systems: Rest review of systems negative. Medications: Medications have been reviewed. Physical Exam Vital Signs: Temp Pulse Resp BP Pulse Ox 98.3 F 89 18 130/70 H 96 01/12/17 11:38 01/12/17 11:38 01/12/17 11:38 01/12/17 11:38 01/12/17 11:38 Intake & Output 01/12/17 01/13/17 01/14/17 06:59 06:59 06:59 Intake Total 1139 Balance 1139 Weight 92.3 kg Exam: GENERAL: well-nourished and in no acute distress. Alert and oriented x3 HEAD: Atraumatic, normocephalic. EYES: Pupils equal round and reactive to light, extraocular movements intact, sclera anicteric, conjunctiva are normal. ENT: TMs normal, nares patent, oropharynx clear without exudates. Moist mucous membranes. No oral ulcerations or bleeding gums noted NECK: supple without lymphadenopathy. Trachea is central. No cervical or axillary lymphadenopathy noted. Carotids are 2+, JVD WNL LUNGS: Respiration seems nonlabored, no significant accessory muscle action noted. Breath sounds clear to auscultation bilaterally and equal noted. No wheezes rales or rhonchi noted. No significant dullness noted on percussion. CHEST: Palpation of the chest wall shows no significant chest wall tenderness. No other significant abnormalities noted. HEART: [employer], No PSH, 1/6 JESSICA aortic area, 1/6 xiong systolic murmur mitral area, no rubs, no gallops. ABDOMEN: Soft, no significant tenderness appreciated, normoactive bowel sounds. No guarding, no rebound. No rigidity noted . No masses appreciated. EXTREMITIES: Pedal pulses are 1-2+, no calf tenderness noted. No clubbing or cyanosis.trace + pedal edema noted NEUROLOGICAL: Focused neurological exam showed no significant neurologic deficit. Normal speech, no focal weakness appreciated. CT scan however showed subacute infarct. PSYCH: Normal mood, normal affect. Judgment and insight within normal limits. SKIN: No significant ecchymosis, rash, ulcerations or signs of pruritus noted. MUSCULOSKELETAL EXAM: No significant joint swelling noted. Results Laboratory Results: 01/12/17 05:08 01/12/17 05:08 Impressions: Chest X-Ray 01/10/17 00:00 IMPRESSION: NO ACUTE RADIOGRAPHIC FINDING IN THE CHEST. Head CT 01/10/17 00:00 IMPRESSION: Increased conspicuity of right occipital lobe geographic hypoattenuation suggesting acute on chronic ischemic injury. No evidence of hemorrhagic conversion. EVIDENCE OF ACUTE STROKE: Yes subacute right [employer]. Head MRI 01/11/17 00:00 IMPRESSION: Acute, nonhemorrhagic infarcts in the right MCA and WO[employer]ER distribution. EVIDENCE OF ACUTE STROKE: YES. Right MCA and [employer] INST[employer]ER. Carotid Doppler Study 01/12/17 00:00 IMPRESSION: NO HEMODYNAMICALLY SIGNIFICANT STENOSIS. Assessment & Plan - Diagnosis (1) Paroxysmal atrial fibrillation Is this a current diagnosis for this admission?: Yes (2) Acute right [employer]ER stroke Is this a current diagnosis for this admission?: Yes (3) Headache Qualifiers: Headache type: unspecified Headache chronicity pattern: unspecified pattern Is this a current diagnosis for this admission?: Yes (4) Tobacco dependence Is this a current diagnosis for this admission?: Yes (5) BHAVANI (obstructive sleep apnea) Is this a current diagnosis for this admission?: Yes (6) HTN (hypertension) Qualifiers: Hypertension type: essential hypertension Is this a current diagnosis for this admission?: Yes (7) Hyperlipidemia Qualifiers: Hyperlipidemia type: unspecified Qualified Code(s): E78.5 - Hyperlipidemia , unspecified Is this a current diagnosis for this admission?: Yes - Notes Notes: Started Xarelto as patient described nonspecific side effects to Eliquis in the past. Have also switched patient from Lipitor to Pravachol because of previous musculoskeletal side effects to Lipitor.. Paroxysmal atrial fibrillation: Patient gives a history of paroxysmal atrial fibrillation. He has prior history of stroke and recently also had a recent/ subacute right posterior cerebral circulation stroke. Patient will benefit from chronic anticoagulation. In this regard offered patient chronic Coumadin therapy/Xarelto/Eliquis/Pradaxa therapy. Patient did not want to go on Eliquis at this point. Patient is willing to try Xarelto. He does not want to go on Coumadin. At this point have started patient on Xarelto 20 mg p.o. daily. Will recommend stopping Lovenox once he gets the first dose. Currently patient maintaining sinus rhythm. Continue other medications. Acute right posterior cerebral circulation stroke: Patient on Lovenox and aspirin. Patient to be switched over to Xarelto. Tobacco abuse: Patient advised to quit smoking. Obstructive sleep apnea syndrome: Patient advised to follow-up in the office since he has not done so in quite some time. We will need to make sure that patient respiratory events are being controlled. Hypertension: Recommend good control of blood pressure. Dyslipidemia: Patient claims allergy to side effects to be better. Patient was taking Pravachol at home. Patient was switched over to Pravachol - Time Time with patient: 15-25 minutes - CODE STATUS was discussed, patient remains full code. Surrogate decision-maker patient spouse. Multiple medical problems were addressed. More than 50% of the time spent coordinating care, discussing management plans with involved caregivers. Management plans discussed with involved personnels. Medical decision making was of moderate to high complexity , patient's has multiple comorbidities. Medications reviewed and adjusted accordingly: Yes
== END 2017-01-12 13:01 | disposition home or self-care (01) | DRG 65 ==
LOC: ER 20:02 → EH 01-11 00:13 → UNDOADMIN 01-11 00:15 → EH 01-11 00:15 → 3W 01-11 01:55
PROVIDERS: ADMIT Internal Medicine; ATTEND Internal Medicine
PROC: 5A09357 Assistance with Respiratory Ventilation, Less than 24 Consecutive Hours, Continuous Positive Airway Pressure (ICD-10-PCS; principal; 2017-01-11)
DX: I63.531 Cerebral infarction due to unspecified occlusion or stenosis of right posterior cerebral artery (principal); E87.0 Hyperosmolality and hypernatremia; G81.94 Hemiplegia, unspecified affecting left nondominant side; I63.511 Cerebral infarction due to unspecified occlusion or stenosis of right middle cerebral artery; D50.9 Iron deficiency anemia, unspecified; I48.0 Paroxysmal atrial fibrillation; R47.81 Slurred speech; G47.33 Obstructive sleep apnea (adult) (pediatric); I10 Essential (primary) hypertension; E78.5 Hyperlipidemia, unspecified; R51 Headache; K21.9 Gastro-esophageal reflux disease without esophagitis; R20.0 Anesthesia of skin; J44.9 Chronic obstructive pulmonary disease, unspecified; F17.210 Nicotine dependence, cigarettes, uncomplicated; Z79.01 Long term (current) use of anticoagulants; Z79.82 Long term (current) use of aspirin; Z88.8 Allergy status to other drugs, medicaments and biological substances; Z86.010 Personal history of colon polyps; Z79.899 Other long term (current) drug therapy; Z87.891 Personal history of nicotine dependence; Z82.3 Family history of stroke; Z82.49 Family history of ischemic heart disease and other diseases of the circulatory system
CPT/HCPCS: 36415; 70450; 70551; 71010; 80048; 80053; 80061; 81001; 82550; 82553; 83036; 83735; 84484; 85025; 85610; 85730; 93005; 93010; 93306; 93880; 99285; J1650; J3490